=== PATIENT | male | born 2000 | race African-American/Black ===

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

== ENCOUNTER 2019-01-14 01:47 | Emergency (ER) | payer SELFPAY ==
[2019-01-14 02:28] VITALS: PULSE 60; BMI 32.6
[2019-01-14] MEDS ORDERED: DIVALPROEX SODIUM 500 MG TABLET E.C. PO ONE (02:56)
--- NOTE | 2019-01-14 03:53 | PDOC ---
History of Present Illness - General Chief Complaint: Seizure Stated Complaint: SEIZURES Time Seen by Provider: 01/14/19 02:37 History Source: Patient Exam Limitations: No Limitations Past History - Past Medical History Allergies/Adverse Reactions: Allergies Allergy/AdvReac Type Severity Reaction Status Date / Time shellfish derived Allergy Verified 01/14/19 02:28 Home Medications: Ambulatory Orders Divalproex [Depakote -] 500 mg PO TID 02/25/14 Roby Aspartate [Lithate] 80 mg PO DAILY 01/14/19 COPD: No Psychiatric Problems: Yes (anger and axeity) Seizures: Yes - Suicide/Smoking/Psychosocial Hx Smoking Status: No Smoking History: Never smoked Have you smoked in the past 12 months: No Number of Cigarettes Smoked Daily: 1 Information on smoking cessation initiated: No Hx Alcohol Use: No Drug/Substance Use Hx: No Substance Use Type: None *Physical Exam - Vital Signs Last Vital Signs Temp Pulse Resp BP Pulse Ox 97.2 F L 60 19 125/77 100 01/14/19 01:47 01/14/19 01:47 01/14/19 01:47 01/14/19 01:47 01/14/19 01:47 - Physical Exam HEENT: positive: DIONISIO, Other (no head trauma) Neck: positive: Supple. negative: Stridor, Tender lateral, Tender midline Respiratory/Chest: positive: Lungs Clear, Normal Breath Sounds. negative: Respiratory Distress Cardiovascular: positive: Regular Rhythm, Regular Rate, S1, S2. negative: Murmur Gastrointestinal/Abdominal: positive: Normal Bowel Sounds, Soft. negative: Tender, Distended, Guarding, Rebound Musculoskeletal: positive: Other (several old healed cut shea along L forearm) Integumentary: positive: Normal Color Neurologic: positive: Alert, Normal Mood/Affect Moderate Sedation - Procedure Monitoring Vital Signs: Procedure Monitoring Vital Signs Temperature 97.2 F L 01/14/19 01:47 Pulse Rate 60 01/14/19 01:47 Respiratory Rate 19 01/14/19 01:47 Blood Pressure 125/77 01/14/19 01:47 O2 Sat by Pulse Oximetry (%) 100 01/14/19 01:47 ED Treatment Course - LABORATORY CBC & Chemistry Diagram: 01/14/19 03:53 01/14/19 04:06 Medical Decision Making - Medical Decision Making 18 y/o M with hx of seizures (since childhood, on Depakote 500 mg TID), depression, schizophrenia, bipolar presents s/p 1 episode of seizure today. Patient states normally when he gets [place] and chest pain, he knows a seizure is about to occur. The seizure occurred with EMS and no trauma occurred. Per patient's partner, episode lasted only few minutes. Per patient, he had a seizure last week and was seen at [facility], where he stayed for 1 night and then was discharged. Patient mentions not taking his seizure meds for around 1 month. States he never got a refill from [facility] and he does not have a PCP or neurologist. States his father's PCP filled his meds prior to a month ago, but unable to get hold of him as well. Mentions only smoking marijuana; denies other drug use. Denies alcohol use. Patient also mentions he used to take Roby, Seroquel, Clozapine and Xanax but stopped all his meds 2- 3 months ago. He has not seen psychiatrist in long time. Mentions he does not have mother and does not talk much to this father. States 3 weeks ago, he wanted to jump off bridge, but did not do it. Admits to having suicidal thoughts and states he may consider another attempt. Currently denies headache, sob, cp, abd pain, n/v, neck pain, homicidal ideation. Seizure - likely due to med noncompliance and poor f/u Plan: Labs, Depakote 500 mg Psych hx Patient with active suicidal ideation Placed on 1:1 Attempted to reach psychiatry, Dr. Hernandes, but unable to get in touch; voicemail left for callback 01/14/19 03:44 Labs reviewed and unremarkable Urine tox pending to be collected (patient sleeping and has not yet voided) Depakote level low (likely from noncompliance) Patient pending psych eval Will be signed out to incoming [facility] 01/14/19 06:52 *DC/Admit/Observation/Transfer Diagnosis at time of Disposition: Seizure - Discharge Dispostion Condition at time of disposition: Fair - Referrals Referrals: Randi Reed MD [Primary Care Provider] - - Patient Instructions - Post Discharge Activity
[2019-01-14] MEDS ORDERED: DIVALPROEX SODIUM 500 MG TABLET E.C. ONE (03:58)
--- NOTE | 2019-01-14 04:13 | PDOC ---
*Physical Exam - Vital Signs Last Vital Signs Temp Pulse Resp BP Pulse Ox 97.2 F L 60 19 125/77 100 01/14/19 01:47 01/14/19 01:47 01/14/19 01:47 01/14/19 01:47 01/14/19 01:47 ED Treatment Course - LABORATORY CBC & Chemistry Diagram: 01/14/19 03:53 01/14/19 04:06 - Medications Given in the ED: ED Medications Discontinued Medications Generic Name Dose Route Start Last Admin Trade Name Freq PRN Reason Stop Dose Admin Divalproex Sodium 500 mg 01/14/19 02:56 01/14/19 04:05 Depakote - PO 01/14/19 02:57 500 mg ONCE ONE Administration Medical Decision Making - Medical Decision Making 01/14/19 04:13 Patient seen by the advanced practice provider under my direct supervision. Ancillary testing reviewed as necessary. I agree with plan as outlined by the advanced practice provider. *DC/Admit/Observation/Transfer Diagnosis at time of Disposition: Seizure - Discharge Dispostion Condition at time of disposition: Fair - Referrals Referrals: Randi Reed MD [Primary Care Provider] - - Patient Instructions - Post Discharge Activity
[2019-01-14 04:17] LABS: BASO % 0.8 % (0-2.0); EOS % 2.7 % (0-4.5); HEMATOCRIT 37.8 % (35.4-49); HEMOGLOBIN 12.9 GM/dL (11.7-16.9); LYMPH % 38.2 % (8-40); MCH 31.6 pg (25.7-33.7); MCHC 34.1 g/dl (32.0-35.9); MEAN CELL VOLUME 92.6 fl (80-96); MEAN PLT VOLUME 9.3 fl (7.5-11.1); MONO % 5.6 % (3.8-10.2); NEUT % 52.7 % (42.8-82.8); PLATELET COUNT 253 K/MM3 (134-434); RBC 4.08 M/mm3 (4.00-5.60); RDW 14.3 % (11.9-15.9); WHITE BLOOD COUNT 9.8 K/mm3 (4.0-10.0)
[2019-01-14 04:42] LABS: ALBUMIN 3.7 g/dl (3.4-5.0); ALK PHOS 72 U/L (45-117); ANION GAP 8 MMOL/L (8-16); BILIRUBIN,TOTAL 0.2 mg/dL (0.2-1); BLOOD UREA NITROGEN 15 mg/dL (7-18); CALCIUM 9.2 mg/dL (8.5-10.1); CHLORIDE 107 mmol/L (98-107); CO2 26 mmol/L (21-32); CREATININE 0.9 mg/dL (0.55-1.3); GLUCOSE,RANDOM 91 mg/dL (74-106); MAGNESIUM 2.2 mg/dL (1.8-2.4); POTASSIUM 4.2 mmol/L (3.5-5.1); SGOT/AST 20 U/L (15-37); SGPT/ALT 16 U/L (13-61); SODIUM 140 mmol/L (136-145); TOT PROT 6.8 g/dl (6.4-8.2)
--- NOTE | 2019-01-14 07:49 | PDOC ---
*Physical Exam - Vital Signs Last Vital Signs Temp Pulse Resp BP Pulse Ox 97.2 F L 60 19 125/77 100 01/14/19 01:47 01/14/19 01:47 01/14/19 05:25 01/14/19 01:47 01/14/19 05:25 - Physical Exam General Appearance: Yes: Appropriately Dressed. No: Apparent Distress Neck: positive: Supple Respiratory/Chest: negative: Respiratory Distress Integumentary: positive: Dry, Warm ED Treatment Course - LABORATORY CBC & Chemistry Diagram: 01/14/19 03:53 01/14/19 04:06 - ADDITIONAL ORDERS Additional order review: Laboratory Results 01/14/19 01/14/19 01/14/19 04:06 03:53 03:53 WBC RBC Hgb Hct MCV MCH MCHC RDW Plt Count MPV Absolute Neuts (auto) Neutrophils % Lymphocytes % Monocytes % Eosinophils % Basophils % Nucleated RBC % Sodium 140 Potassium 4.2 Chloride 107 Carbon Dioxide 26 Anion Gap 8 BUN 15 Creatinine 0.9 Creat Clearance w eGFR > 60 Random Glucose 91 Calcium 9.2 Magnesium 2.2 Total Bilirubin 0.2 AST 20 ALT 16 Alkaline Phosphatase 72 Total Protein 6.8 Albumin 3.7 Salicylates 1.8 L Acetaminophen < 2.0 L Valproic Acid < 3.0 L Alcohol, Quantitative < 3.0 01/14/19 03:53 WBC 9.8 RBC 4.08 Hgb 12.9 Hct 37.8 MCV 92.6 MCH 31.6 MCHC 34.1 RDW 14.3 Plt Count 253 MPV 9.3 Absolute Neuts (auto) 5.2 Neutrophils % 52.7 Lymphocytes % 38.2 Monocytes % 5.6 Eosinophils % 2.7 Basophils % 0.8 Nucleated RBC % 0 Sodium Potassium Chloride Carbon Dioxide Anion Gap BUN Creatinine Creat Clearance w eGFR Random Glucose Calcium Magnesium Total Bilirubin AST ALT Alkaline Phosphatase Total Protein Albumin Salicylates Acetaminophen Valproic Acid Alcohol, Quantitative 01/14/19 03:53 RBC 4.08 MCV 92.6 MCHC 34.1 RDW 14.3 MPV 9.3 Neutrophils % 52.7 Lymphocytes % 38.2 Monocytes % 5.6 Eosinophils % 2.7 Basophils % 0.8 - Medications Given in the ED: ED Medications Discontinued Medications Generic Name Dose Route Start Last Admin Trade Name Freq PRN Reason Stop Dose Admin Divalproex Sodium 500 mg 01/14/19 02:56 01/14/19 04:05 Depakote - PO 01/14/19 02:57 500 mg ONCE ONE Administration Medical Decision Making - Medical Decision Making 01/14/19 07:39 Received sign out at 7am 18 yo male, depression, schizophrenia, bipolar, seizure, non-compliant w/ meds, brought in by EMS after patient called reporting that he felt that a seizure was coming on. Seizure witnessed by EMS w/ no trauma noted per records. Of note , patient was seen at [facility] last week for seizure. Stopped taking his seizure meds ~1 month ago and states he never received refill from [facility]. Currently lost to f/u w/ neuro. Patient also on lithium, seroquel, clozapine and Xanax but stopped taking all his meds 2-3 months ago and has not seen a psychiatrist in a long time. Per patient has had previous suicidal ideation and states in the past, he had thoughts of jumping off a bridge. Per prior team, patient has multiple healed linear abrasions to UEs, c/ w prior self injury. Per prior team, pt with active suicidal ideation and currently a/w psych eval. Awaiting to hear from Dr Hernandes who was already paged. Pt currently on 1:1. Of note, labs mostly unremarkable, depakote lvl low. Utox pending 01/14/19 07:49 On reassessment now, unable to interview patient at this time as patient currently sleeping 01/14/19 10:20 Pt more awake now and able to give hx. Confirms that he has not taken any of his meds in months and lost to f/u. Does report SI at this time but refusing admission/transfer at this time. Denies HI or hallucinations at this time. [place] back from Dr Hernandes who states he will come evaluate pt in the ED 01/14/19 11:06 *DC/Admit/Observation/Transfer Diagnosis at time of Disposition: Seizure - Discharge Dispostion Disposition: HOME Condition at time of disposition: Stable - Referrals Referrals: Randi Reed MD [Primary Care Provider] - - Patient Instructions Additional Instructions: You were cleared by psychiatry to be discharged It is very important that you resume psych medications Please follow up in the psychiatry clinic at [facility] in [place]. Please call for an appointment at [phone] You also need to resume you seizure meds Please follow up at the neurology clinic at [facility] You can call for an appointment at: [facility] [address], [place] [id number] Sunday 9:00 AM - 5:00 PM Sunday 9:00 AM - 5:00 PM Sunday 9:00 AM - 5:00 PM 9:00 AM - 5:00 PM Sunday 9:00 AM - 5:00 PM Sunday Closed Sunday Closed Please return to the ED for worsening of any of your symptoms - Post Discharge Activity
[2019-01-14 08:37] VITALS: BP 99/55; TEMP 98.5
--- NOTE | 2019-01-14 11:06 | CON.PSY ---
Psychiatry Consult Chief Complaint: 18 year old male, came to Er for Seizures and apparantly told staff that he was suicidal but no concrte plans at this time. patient hasd history of selfv damaging behaviour. had been attending [facility] . Symptoms: reports: Irritability - Previous Psychiatric Treatment Outpatient: Less than 6 mos ago Inpatient: Within the last 12 months - Previous Substance Abuse Treatment Outpatient: None Inpatient: None - Reason for Previous Treatment Reason for Previous Treatment: Biploar Illness - Allergies Allergies: Allergies Allergy/AdvReac Type Severity Reaction Status Date / Time shellfish derived Allergy Verified 01/14/19 02:28 - Current Living Status Usual Living Arrangement: With Significant Other - Current Mental Status Evaluation Appearance: Well Groomed Attitude: Cooperative - Affect Affect: Constrictive Appropriateness: Appropriate to Content - Mood Mood: Euthymic - Speech/Language Expressive: Coherent - Psychomotor Activity Psychomotor Activity: Normal - Thought Process Thought Process: Intact - Thought Content Hallucinations: Absent Delusions: Absent - Self Perception Self Perception: No Impairment - Cognition Attention: Alert Orientation: Time Memory, Short Term: 2/3 Memory, Remote with Promptin/3 - Concentration Serial Sevens Intact: No Simple Calculations Intact: Yes - Abstraction Proverb Interpretation: Intact Judgement: Minimally Impaired - Insight Insight: Intact - Impulse Control Impulse Control: Minimally Impaired - Suicidal Ideation Suicidal Ideation: No - Homicidal Ideation Homicidal Ideation: No Assessment/Plan 1) Patient is not acutly suicidal at this time. 2) Psych [id number] up at [facility]. ) discharge home when medically clear. 3)
--- NOTE | 2019-01-14 13:47 | EKG ---
Test Reason : Blood Pressure : / mmHG Vent. Rate : 048 BPM Atrial Rate : 048 BPM P-R Int : 168 ms QRS Dur : 098 ms QT Int : 432 ms P-R-T Axes : 058 072 068 degrees QTc Int : 385 ms SINUS BRADYCARDIA WITH SINUS ARRHYTHMIA OTHERWISE NORMAL ECG NO PREVIOUS ECGS AVAILABLE Confirmed by MD Duke, Lazaro ([id number]) on 01/14/2019 1:46:43 PM Referred By: Confirmed By:Lazaro Wall MD
== END 2019-01-14 11:15 | disposition home or self-care (01) ==
LOC: JER 01:47
DX: G40.909 Epilepsy, unspecified, not intractable, without status epilepticus (principal); R45.851 Suicidal ideations; F31.9 Bipolar disorder, unspecified; F20.9 Schizophrenia, unspecified; R45.4 Irritability and anger
CPT/HCPCS: 36415; 80053; 80164; 80307; 83735; 85025; 93005; 93010; 99285-25

== ENCOUNTER 2019-01-22 14:45 | Emergency (ER) | payer SELFPAY ==
[2019-01-22 15:10] VITALS: BP 112/56; PULSE 75; TEMP 98; BMI 32.6
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
== END 2019-01-22 16:23 | disposition home or self-care (01) ==
LOC: JERFT 14:45
PROC: 2W3RXYZ Immobilization of Left Lower Leg using Other Device (ICD-10-PCS; principal; 2019-01-22)
DX: S83.412D Sprain of medial collateral ligament of left knee, subsequent encounter (principal); V03.00XD Pedestrian on foot injured in collision with car, pick-up truck or van in nontraffic accident, subsequent encounter
CPT/HCPCS: 73562-TC-LT-FY; 99281-25

== ENCOUNTER 2019-03-21 01:42 | Observation (INO) | payer OTHER ==
--- NOTE | 2019-03-21 02:05 | PDOC ---
History of Present Illness - General Stated Complaint: VOMITING Time Seen by Provider: 03/21/19 02:01 History Source: Patient Exam Limitations: No Limitations - History of Present Illness Initial Comments: 03/21/19 02:23 18 year old male with PMH seizure disorder presented to ED for toxic ingestion of multiple substances at 1130 pm 03/20/19. Pt admitted to smoking 1/8 of marijuana, taking 2 "mollys" and taking four 500 mg depakote. He stated he was going to take more Depakote in an effort to kill himself, but his cousin persuaded him otherwise. Pt stated he has a history of cutting, and was going to cut his arms in an effort to take the pain away. Pt admitted to vomiting four times, denied blood. Pt denied ETOH use, cocaine use, benzo use, heroine use, IV drug use. Allergies: NKDA Past History - Past Medical History Allergies/Adverse Reactions: Allergies Allergy/AdvReac Type Severity Reaction Status Date / Time shellfish derived Allergy Verified 03/21/19 03:53 Home Medications: Ambulatory Orders Divalproex [Depakote -] 500 mg PO TID 02/25/14 [place] Aspartate [Lithate] 80 mg PO DAILY 01/14/19 COPD: No Psychiatric Problems: Yes (anger and axeity) Seizures: Yes - Suicide/Smoking/Psychosocial Hx Smoking Status: No Smoking History: Current every day smoker Have you smoked in the past 12 months: No Number of Cigarettes Smoked Daily: 10 Hx Alcohol Use: Yes Drug/Substance Use Hx: Yes Substance Use Type: None Review of Systems - Review of Systems Able to Perform ROS?: Yes Comments:: 03/21/19 02:27 General: denied fever, chills, generalized weakness. HEENT: denied sore throat, rhinorrhea, ear pain. Heart: denied chest pain, palpitations, syncope, diaphoresis. Respiratory: denied shortness of breath, cough, sputum production, hemoptysis. Abdomen: admitted to nausea, vomiting, abdominal pain. denied diarrhea, constipation, blood in stool. : denied dysuria, increased urinary frequency, hematuria, urinary incontinence , flank pain. Back: denied back pain. Musculoskeletal: denied joint pain, muscle pain, joint swelling. Neurological: denied headache, dizziness, numbness, tingling, weakness. Skin: denied rash, laceration, abrasion. *Physical Exam - Physical Exam Comments: 03/21/19 02:28 Constitutional: Well-nourished, Well-developed, appearing stated age. appears intoxicated. dishelveled. malodorous. HEENT: head is normocephalic, atraumatic. EOMI. PERRLA. Neck: supple. Full ROM. Heart: regular rhythm. no murmurs, rubs or gallops. Lungs: clear to auscultation bilaterally. no crackles, rhonchi or wheezing. no stridor. Abdomen: soft, nontender. normal bowel sounds. no rebound, guarding, masses. Extremities: peripheral pulses intact. no lower extremity edema. Neurological: CN 2-12 grossly intact. moves all four extremities. Psych: awake, alert, oriented x3. follows commands. answers questions appropriately. no depressed mental status. Skin: diffuse too numerous to count healed linear horizontal scars to flexor surface of bilateral arms. ED Treatment Course - LABORATORY CBC & Chemistry Diagram: 03/21/19 02:14 03/21/19 02:14 Medical Decision Making - Medical Decision Making 03/21/19 02:28 18 year old male with PMH seizure disorder presented to ED for polysubstance ingestion with suicidal ideation. Labs ordered: CBC, CMP, acetaminophen, salicyclate, depakote level, ammonia Imaging ordered: none Medications ordered: none Pt has been placed on 1:1. Psych consult placed. EKG performed at 0539: rate 54, regular rhythm, normal axis, normal intervals, QTc 396, no acute ST changes, artifact noted. 03/21/19 03:32 CBC WBC 9.3 K/mm3 (4.0-10.0) 03/21/19 02:14 RBC 4.80 M/mm3 (4.00-5.60) 03/21/19 02:14 Hgb 13.7 GM/dL (11.7-16.9) 03/21/19 02:14 Hct 42.1 % (35.4-49) 03/21/19 02:14 MCV 87.6 fl (80-96) 03/21/19 02:14 MCH 28.6 pg (25.7-33.7) 03/21/19 02:14 MCHC 32.6 g/dl (32.0-35.9) 03/21/19 02:14 RDW 14.8 % (11.9-15.9) 03/21/19 02:14 Plt Count 258 K/MM3 (134-434) 03/21/19 02:14 MPV 9.0 fl (7.5-11.1) 03/21/19 02:14 Absolute Neuts (auto) 5.5 K/mm3 (1.5-8.0) 03/21/19 02:14 Neutrophils % 59.0 % (42.8-82.8) 03/21/19 02:14 Lymphocytes % 33.4 % (8-40) 03/21/19 02:14 Monocytes % 5.3 % (3.8-10.2) 03/21/19 02:14 Eosinophils % 1.7 % (0-4.5) 03/21/19 02:14 Basophils % 0.6 % (0-2.0) 03/21/19 02:14 Nucleated RBC % 0 % (0-0) 03/21/19 02:14 No leukocytosis. No anemia. No thrombocytopenia. 03/21/19 03:38 Pt reassessed, sleeping comfortably, easily arousable, alert and orientedx3. Salicyclate, acetaminophen levels negative. Depakote level negative. -Will repeat. 03/21/19 04:09 CMP Sodium 140 mmol/L (136-145) 03/21/19 02:14 Potassium 4.1 mmol/L (3.5-5.1) 03/21/19 02:14 Chloride 110 mmol/L (98-107) H 03/21/19 02:14 Carbon Dioxide 24 mmol/L (21-32) 03/21/19 02:14 Anion Gap 7 MMOL/L (8-16) L 03/21/19 02:14 BUN 13 mg/dL (7-18) 03/21/19 02:14 Creatinine 0.8 mg/dL (0.55-1.3) 03/21/19 02:14 Est GFR (CKD-EPI)AfAm 149.04 03/21/19 02:14 Est GFR (CKD-EPI)NonAf 128.60 03/21/19 02:14 Random Glucose 91 mg/dL (74-106) 03/21/19 02:14 Calcium 9.3 mg/dL (8.5-10.1) 03/21/19 02:14 Total Bilirubin 0.3 mg/dL (0.2-1) 03/21/19 02:14 AST 16 U/L (15-37) 03/21/19 02:14 ALT 18 U/L (13-61) 03/21/19 02:14 Alkaline Phosphatase 70 U/L (45-117) 03/21/19 02:14 Ammonia 54.60 umol/L (11-32) H 03/21/19 02:14 Total Protein 6.8 g/dl (6.4-8.2) 03/21/19 02:14 Albumin 3.8 g/dl (3.4-5.0) 03/21/19 02:14 No electrolyte abnormalities. No JOSELUIS. No transaminitis. Mildly elevated ammonia. 03/21/19 04:45 Pt reevaluated, sleeping comfortably, arousable to touch, somnolent, but alert once awake. 03/21/19 05:23 Poison control consulted - they recommended serial depakote levels every 4-6 hours, for two more measurements. Pt will require observation for serial depakote levels. Can be ED obs. Microblog sent. 03/21/19 06:29 Dr. Hernandes paged. Message left on voicemail. 03/21/19 06:46 Second depakote 10.5 -Will need repeat at [address] Mancuso about the patient. *DC/Admit/Observation/Transfer Diagnosis at time of Disposition: Suicidal ideation, Polysubstance abuse, Valproic acid toxicity - Discharge Dispostion Condition at time of disposition: Stable Decision to Admit order: Yes - Referrals - Patient Instructions - Post Discharge Activity
--- NOTE | 2019-03-21 02:31 | PDOC ---
Attending Attestation - Resident Resident Name: Carlie Nick - ED Attending Attestation I have performed the following: I have examined & evaluated the patient, The case was reviewed & discussed with the resident, I agree w/resident's findings & plan, Exceptions are as noted - HPI HPI: 03/21/19 05:26 18M pmh sz do here with polysubstance ingestion and suicide attempt. Pt smoked marijuana, took 2 doses of casimiro and 500mg Depakote x4 pills. His cousin witnessed the ingestion around 12am tonight and prevented the patient from taking anymore Depakote when he stated that he was going to take more to try to kill himself. Afterwards pt vomited 4x, nbnb. No other complaints. - Physicial Exam PE: 03/21/19 05:28 Appears intoxicated, NAD, Oriented x3, sleepy but easily roused NCAT PERRL, EOMI Neck supple RRR LCTAB ABd soft, nt, nd Stigmata of cutting on bilateral upper extremities, no acute lacerations - Medical Decision Making 03/21/19 05:29 Toxic ingestion, polysubstance, marijuana, casimiro, 2gm of VPA In consultation with [facility] poison [spoke with Kusum Patton], will trend VPA levels every 4 to 6 hours until a peak is noted followed by 2 decreasing values F/u labs 1:1 Psych consult when medically clear
[2019-03-21 02:48] VITALS: BMI 64.3
[2019-03-21 03:08] LABS: BASO % 0.6 % (0-2.0); EOS % 1.7 % (0-4.5); HEMATOCRIT 42.1 % (35.4-49); HEMOGLOBIN 13.7 GM/dL (11.7-16.9); LYMPH % 33.4 % (8-40); MCH 28.6 pg (25.7-33.7); MCHC 32.6 g/dl (32.0-35.9); MEAN CELL VOLUME 87.6 fl (80-96); MONO % 5.3 % (3.8-10.2); PLATELET COUNT 258 K/MM3 (134-434); RDW 14.8 % (11.9-15.9); WHITE BLOOD COUNT 9.3 K/mm3 (4.0-10.0)
[2019-03-21 04:03] LABS: ALBUMIN 3.8 g/dl (3.4-5.0); BILIRUBIN,TOTAL 0.3 mg/dL (0.2-1); CALCIUM 9.3 mg/dL (8.5-10.1); CREATININE 0.8 mg/dL (0.55-1.3); POTASSIUM 4.1 mmol/L (3.5-5.1); TOT PROT 6.8 g/dl (6.4-8.2)
[2019-03-21 05:16] VITALS: TEMP 98
--- NOTE | 2019-03-21 10:40 | PDOC ---
*Physical Exam - Vital Signs Last Vital Signs Temp Pulse Resp BP Pulse Ox 98.0 F 60 20 107/60 97 03/21/19 05:13 03/21/19 05:13 03/21/19 04:24 03/21/19 05:13 03/21/19 05:13 ED Treatment Course - LABORATORY CBC & Chemistry Diagram: 03/21/19 02:14 03/21/19 02:14 - ADDITIONAL ORDERS Additional order review: Laboratory Results 03/21/19 03/21/19 03/21/19 02:14 02:14 02:14 Sodium Potassium Chloride Carbon Dioxide Anion Gap BUN Creatinine Est GFR (CKD-EPI)AfAm Est GFR (CKD-EPI)NonAf Random Glucose Calcium Total Bilirubin AST ALT Alkaline Phosphatase Ammonia 54.60 H Total Protein Albumin Salicylates < 1.7 L Acetaminophen < 2.0 L Valproic Acid 10.1 L 03/21/19 02:14 Sodium 140 Potassium 4.1 Chloride 110 H Carbon Dioxide 24 Anion Gap 7 L BUN 13 Creatinine 0.8 Est GFR (CKD-EPI)AfAm 149.04 Est GFR (CKD-EPI)NonAf 128.60 Random Glucose 91 Calcium 9.3 Total Bilirubin 0.3 AST 16 ALT 18 Alkaline Phosphatase 70 Ammonia Total Protein 6.8 Albumin 3.8 Salicylates Acetaminophen Valproic Acid 03/21/19 02:14 RBC 4.80 MCV 87.6 MCHC 32.6 RDW 14.8 MPV 9.0 Neutrophils % 59.0 Lymphocytes % 33.4 Monocytes % 5.3 Eosinophils % 1.7 Basophils % 0.6 Medical Decision Making - Medical Decision Making 03/21/19 10:39 Reevaluation 10:30 AM. Patient sleeping comfortably arousable to gentle stimulation no complaints at this time awaiting psychiatric evaluation second Depakote level grossly unchanged 03/21/19 14:30 Reevaluation 2:30 PM Patient awake alert eating. Laboratory analysis trending down regarding Depakote level Patient currently denying any suicidal ideation or plan Medically cleared at this point. *DC/Admit/Observation/Transfer Diagnosis at time of Disposition: Suicidal ideation, Polysubstance abuse, Valproic acid toxicity - Discharge Dispostion Condition at time of disposition: Stable - Referrals - Patient Instructions - Post Discharge Activity
--- NOTE | 2019-03-21 10:46 | HP ---
CHIEF COMPLAINT: suicide attempt PCP: none HISTORY OF PRESENT ILLNESS: 18 y/o M with PMH seizure disorder (since childhood), depression, schizophrenia , bipolar, past suicide attempts, cutting shea, who presented to the ED for toxic ingestion of multiple substances last night. All hx provided by EMR, as pt is unable to discuss his current condition- "I am too sleepy to even keep my eyes open." As per chart, on admission, pt admitted to smoking 1/8 of marijuana , taking 2 "casimiro's" and taking four pills of 500 mg depakote. He stated he was going to take extra Depakote to harm himself, however his cousin persuaded him not to. Pt has a history of cutting, and was going to cut his upper extremities in an effort to take the pain away. During this time, pt also endorsed four episodes of NBNB emesis. Pt denied ETOH use, cocaine use, benzo use, heroine use , IV drug use. Currently refuses to discuss ROS. Pt has been attending [facility] psych clinic. Pharmacy called - was recently d/c on : klonazepam 1mg BID VESNA, benztropine 0.5mg BID, lithium 300mg 3 caps qHS , zyprexa 20mg qHS, oxcarbazepine 300mg BID. Last yr his depakote 500mg qHS was filled. ER course was notable for: (1) first 2 depakote levels subtherapeutic (2) poison control (3) Recent Travel: denies PAST MEDICAL HISTORY: as above PAST SURGICAL HISTORY: L elbow surgery Social History: Smoking: endorsed; would not describe further Alcohol: as above Drugs: as above Family History: denies Allergies shellfish derived Allergy (Verified 03/21/19 03:53) HOME MEDICATIONS: Home Medications Medication Instructions Recorded Benztropine Mesylate 0.5 mg PO BID 03/21/19 Clonazepam [Klonopin] 1 mg PO BID 03/21/19 [place] Carbonate [Eskalith -] 900 mg PO HS 03/21/19 Olanzapine [Zyprexa] 20 mg PO HS 03/21/19 Oxcarbazepine 300 mg PO BID 03/21/19 pharmacy called; meds listed above. unable to verbally confirm with pt as he is too lethargic REVIEW OF SYSTEMS CONSTITUTIONAL: +lethargic Absent: fever, chills, diaphoresis, generalized weakness, malaise, loss of appetite, weight change HEENT: Absent: rhinorrhea, nasal congestion, throat pain, throat swelling, difficulty swallowing, mouth swelling, ear pain, eye pain, visual changes CARDIOVASCULAR: Absent: chest pain, syncope, palpitations, irregular heart rate, lightheadedness , peripheral edema RESPIRATORY: Absent: cough, shortness of breath, dyspnea with exertion, orthopnea, wheezing, stridor, hemoptysis GASTROINTESTINAL: Absent: abdominal pain, abdominal distension, nausea, vomiting, diarrhea, constipation, melena, hematochezia GENITOURINARY: Absent: dysuria, frequency, urgency, hesitancy, hematuria, flank pain, genital pain MUSCULOSKELETAL: Absent: myalgia, arthralgia, joint swelling, back pain, neck pain SKIN: Absent: rash, itching, pallor HEMATOLOGIC/IMMUNOLOGIC: Absent: easy bleeding, easy bruising, lymphadenopathy, frequent infections ENDOCRINE: Absent: unexplained weight gain, unexplained weight loss, heat intolerance, cold intolerance NEUROLOGIC: Absent: headache, focal weakness or paresthesias, dizziness, unsteady gait, seizure, mental status changes, bladder or bowel incontinence PSYCHIATRIC: Absent: anxiety, depression, suicidal or homicidal ideation, hallucinations. PHYSICAL EXAMINATION Vital Signs - 24 hr 03/21/19 03/21/19 03/21/19 02:00 02:48 04:24 Temperature 98.3 F 98.3 F 98.5 F Pulse Rate 67 Pulse Rate [ 70 70 Radial] Respiratory 17 20 20 Rate Blood Pressure 124/80 Blood Pressure 124/80 107/80 [Left Arm] O2 Sat by Pulse 97 99 100 Oximetry (%) 03/21/19 05:13 Temperature 98.0 F Pulse Rate Pulse Rate [ 60 Radial] Respiratory Rate Blood Pressure Blood Pressure 107/60 [Left Arm] O2 Sat by Pulse 97 Oximetry (%) GENERAL: Lying in bed, lethargic. on 1:1 . does not appear to be in acute distress HEAD: Normal with no signs of trauma. EYES: Pupils equal, round and reactive to light, extraocular movements intact, sclera anicteric, conjunctiva clear. EARS, NOSE, THROAT: Ears normal, nares patent, oropharynx clear without exudates. Moist mucous membranes. NECK: Normal range of motion, supple LUNGS: Breath sounds equal, clear to auscultation bilaterally. No wheezes, and no crackles. No accessory muscle use. HEART: Regular rate and rhythm, normal S1 and S2 without murmur, rub or gallop. ABDOMEN: Soft, obese, nontender, not distended, normoactive bowel sounds, no guarding, no rebound, no masses. LOWER EXTREMITIES: 2+ pt pulses, warm, well-perfused. No calf tenderness. No peripheral edema. NEUROLOGICAL: Cranial nerves II-XII intact. PSYCHIATRIC: Cooperative. Good eye contact. SKIN: Warm, dry, normal turgor Laboratory Results 03/21/19 03/21/19 03/21/19 02:14 02:14 02:14 WBC 9.3 RBC 4.80 Hgb 13.7 Hct 42.1 MCV 87.6 MCH 28.6 MCHC 32.6 RDW 14.8 Plt Count 258 MPV 9.0 Absolute Neuts (auto) 5.5 Neutrophils % 59.0 Lymphocytes % 33.4 Monocytes % 5.3 Eosinophils % 1.7 Basophils % 0.6 Nucleated RBC % 0 Sodium 140 Potassium 4.1 Chloride 110 H Carbon Dioxide 24 Anion Gap 7 L BUN 13 Creatinine 0.8 Est GFR (CKD-EPI)AfAm 149.04 Est GFR (CKD-EPI)NonAf 128.60 Random Glucose 91 Calcium 9.3 Total Bilirubin 0.3 AST 16 ALT 18 Alkaline Phosphatase 70 Ammonia Total Protein 6.8 Albumin 3.8 Salicylates Acetaminophen Valproic Acid 10.1 L 03/21/19 03/21/19 03/21/19 02:14 02:14 05:51 Salicylates < 1.7 L Acetaminophen < 2.0 L Valproic Acid 10.1 L 10.5 L 03/21/19 10:20 Salicylates Acetaminophen Valproic Acid Pending EKG: normal sinus, rate 54, qtc 346ms. no acute st -t wave changes. from EKG 5: 30AM ASSESSMENT/PLAN: 18 y/o M with PMH seizure disorder (since childhood), depression, schizophrenia , bipolar, past suicide attempts, cutting shea, who presented to the ED for toxic ingestion of multiple substances last night. #Suicide attempt -s/p toxic ingestions including MDMA, depakote -first 2 depakote levels subtherapeutic -d/w Gail from poison control. requesting ABG, alcohol, lithium q2hr x2, full tox screen, carbamezepine levels and call back when they result -was on 1:1;cleared by psych, no psych meds at this time -psych: Dr. Hatch -NPO for now as very lethargic. can adv diet when more awake -hemodynamic monitoring #F/E/N No IVF req at this time continue to follow lytes NPO until less lethargic. #PPX DVT: SCD's #Dispo observation Visit type - Emergency Visit Emergency Visit: Yes ED Registration Date: 03/21/19 Care time: The patient presented to the Emergency Department on the above date and was hospitalized for further evaluation of their emergent condition. - New Patient This patient is new to me today: Yes Date on this admission: 03/21/19 - Critical Care Critical Care patient: No
--- NOTE | 2019-03-21 11:03 | CON.PSY ---
Psychiatry Consult Chief Complaint: 18 adryan old male with no history of Psych illnesws brought to ER after ingesting 4 Depakote tabs , marijuana and Mollies. Patient said he was upset over the of his grand motherr 4 days ago. Patient denies that he was trying to kill himself. Symptoms: reports: Depressed Mood - Previous Psychiatric Treatment Outpatient: None Inpatient: None - Previous Substance Abuse Treatment Outpatient: None Inpatient: None - Allergies Allergies: Allergies Allergy/AdvReac Type Severity Reaction Status Date / Time shellfish derived Allergy Verified 03/21/19 03:53 - Current Living Status Usual Living Arrangement: Alone - Current Mental Status Evaluation Appearance: Well Groomed Attitude: Cooperative - Affect Affect: Constrictive Appropriateness: Appropriate to Content - Mood Mood: Euthymic - Speech/Language Expressive: Coherent - Psychomotor Activity Psychomotor Activity: Normal - Thought Process Thought Process: Intact - Thought Content Hallucinations: Absent Delusions: Absent - Self Perception Self Perception: No Impairment - Cognition Attention: Alert Orientation: Time Memory, Immediate Recall: Intact Memory, Short Term: 3/3 Memory, Remote with Promptin/3 - Concentration Serial Sevens Intact: Yes Simple Calculations Intact: Yes - Abstraction Proverb Interpretation: Intact Judgement: Minimally Impaired - Insight Insight: Intact - Impulse Control Impulse Control: Minimally Impaired - Suicidal Ideation Suicidal Ideation: No - Homicidal Ideation Homicidal Ideation: No Assessment/Plan 1) Patient is not SUicidal at this timer. 2) will follow up with Deanna Strong at [facility]. #) No Psych meds needed. 4) Discharge when medically stable.
--- NOTE | 2019-03-21 15:17 | DS ---
Physical Exam: SUBJECTIVE: Patient seen and examined at bedside. Feeling better and less lethargic. Able to tolerate PO. OBJECTIVE: Vital Signs Period Temp Pulse Resp BP Sys/Ponce Pulse Ox Last 24 Hr 98.0 F-98.5 F 58-70 14-20 105-124/59-80 97-100 PHYSICAL EXAM GENERAL: Lying in bed,awake . in NAD HEAD: Normal with no signs of trauma. EYES: Pupils equal, round and reactive to light, extraocular movements intact, sclera anicteric, conjunctiva clear. EARS, NOSE, THROAT: Ears normal, nares patent, oropharynx clear without exudates. Moist mucous membranes. NECK: Normal range of motion, supple LUNGS: Breath sounds equal, clear to auscultation bilaterally. No wheezes, and no crackles. No accessory muscle use. HEART: Regular rate and rhythm, normal S1 and S2 without murmur, rub or gallop. ABDOMEN: Soft, obese, nontender, not distended, normoactive bowel sounds, no guarding, no rebound, no masses. LOWER EXTREMITIES: 2+ pt pulses, warm, well-perfused. No calf tenderness. No peripheral edema. NEUROLOGICAL: Cranial nerves II-XII intact. PSYCHIATRIC: Cooperative. Good eye contact. SKIN: Warm, dry, normal turgor LABS Laboratory Results 03/21/19 03/21/19 03/21/19 02:14 02:14 02:14 WBC 9.3 Hgb 13.7 Hct 42.1 Plt Count 258 Sodium 140 Potassium 4.1 Chloride 110 H Anion Gap 7 L BUN 13 Creatinine 0.8 Salicylates Acetaminophen Valproic Acid 10.1 L Carbamazepine Alcohol, Quantitative 03/21/19 03/21/19 03/21/19 02:14 05:51 10:20 WBC Hgb Hct Plt Count Sodium Potassium Chloride Anion Gap BUN Creatinine Salicylates < 1.7 L Acetaminophen < 2.0 L Valproic Acid 10.5 L 9.6 L Carbamazepine Alcohol, Quantitative 03/21/19 03/21/19 11:45 11:45 WBC Hgb Hct Plt Count Sodium Potassium Chloride Anion Gap BUN Creatinine Salicylates Acetaminophen Valproic Acid Carbamazepine < 0.5 L Alcohol, Quantitative < 3.0 EKG: normal sinus, rate 54, qtc 346ms. no acute st -t wave changes. from EKG 5: 30AM HOSPITAL COURSE: Date of Admission:03/21/19 Date of Discharge: 03/21/19 Admit diagnosis: Suicide attempt 18 y/o M with PMH seizure disorder (since childhood), depression, schizophrenia , bipolar, past suicide attempts, cutting shea, who presented to the ED for toxic ingestion of multiple substances last night. All hx provided by EMR, as pt is unable to discuss his current condition- "I am too sleepy to even keep my eyes open." As per chart, on admission, pt admitted to smoking 1/ of marijuana , taking 2 "casimiro's" and taking four pills of 500 mg depakote. He stated he was going to take extra Depakote to harm himself, however his cousin persuaded him not to. Pt has a history of cutting, and was going to cut his upper extremities in an effort to take the pain away. During this time, pt also endorsed four episodes of NBNB emesis. Pt denied ETOH use, cocaine use, benzo use, heroine use , IV drug use. Currently refuses to discuss ROS. Pt has been attending [facility] psych clinic. Pharmacy called - was recently d/c on : klonazepam 1mg BID VESNA, benztropine 0.5mg BID, lithium 300mg 3 caps qHS , zyprexa 20mg qHS, oxcarbazepine 300mg BID. Last yr his depakote 500mg qHS was filled. Pt was observed. Three depakote levels were subtherapeutic, alcohol level was negative, carbamezepine negative. Pt was monitored on telemetry while in the ER. He was seen by psychiatry as well . Initially pt was on 1:1 but was cleared by psych, Dr. Hatch and was not recommended to continue on any psych meds on d/c. Pt is to follow at [facility]. He is deemed safe for d/c by psychiatry. Minutes to complete discharge: 45 Discharge Summary Reason For Visit: SUICIDAL IDEATION,POLYSUBSTANCE ABUSE, VALPROIC Condition: Improved - Instructions Diet, Activity, Other Instructions: You were in the hospital because you had ingested multiple drugs. You have been monitored in the hospital and you have been cleared by psychiatry to go home. Medications As per the psychiatrist who saw you in the hospital, you do not need to continue any medications at this time. Follow up However please follow up immediately at the [facility] center at [facility]. [address], [place] Phone number: [phone]. Please also follow up with your primary care doctor this week to discuss your hospital visit. Further instructions If you develop shortness of breath, chest pain or feel as if you will harm yourself, please go to the ER immediately. Disposition: HOME This patient is new to me today: Yes Date on this admission: 03/21/19 Emergency Visit: Yes ED Registration Date: 03/21/19 Care time: The patient presented to the Emergency Department on the above date and was hospitalized for further evaluation of their emergent condition. Critical Care patient: No - Discharge Referral Referred to [facility] No
[2019-03-21 15:22] VITALS: BP 115/68; PULSE 59
--- NOTE | 2019-03-21 15:51 | PN ---
Teaching Attending Note Name of Resident: Felisha Bass ATTENDING PHYSICIAN STATEMENT I saw and evaluated the patient. I reviewed the resident's note and discussed the case with the resident. I agree with the resident's findings and plan as documented. SUBJECTIVE: OBJECTIVE: Vital Signs Period Temp Pulse Resp BP Sys/Ponce Pulse Ox Last 24 Hr 98.0 F-98.5 F 58-70 14-20 105-124/59-80 97-100 Laboratory Tests 03/21/19 03/21/19 03/21/19 02:14 02:14 02:14 WBC 9.3 RBC 4.80 Hgb 13.7 Hct 42.1 MCV 87.6 MCH 28.6 MCHC 32.6 RDW 14.8 Plt Count 258 MPV 9.0 Absolute Neuts (auto) 5.5 Neutrophils % 59.0 Lymphocytes % 33.4 Monocytes % 5.3 Eosinophils % 1.7 Basophils % 0.6 Nucleated RBC % 0 Sodium 140 Potassium 4.1 Chloride 110 H Carbon Dioxide 24 Anion Gap 7 L BUN 13 Creatinine 0.8 Est GFR (CKD-EPI)AfAm 149.04 Est GFR (CKD-EPI)NonAf 128.60 Random Glucose 91 Calcium 9.3 Total Bilirubin 0.3 AST 16 ALT 18 Alkaline Phosphatase 70 Ammonia Total Protein 6.8 Albumin 3.8 Salicylates Acetaminophen Valproic Acid 10.1 L Carbamazepine Alcohol, Quantitative 03/21/19 03/21/19 03/21/19 02:14 02:14 05:51 WBC RBC Hgb Hct MCV MCH MCHC RDW Plt Count MPV Absolute Neuts (auto) Neutrophils % Lymphocytes % Monocytes % Eosinophils % Basophils % Nucleated RBC % Sodium Potassium Chloride Carbon Dioxide Anion Gap BUN Creatinine Est GFR (CKD-EPI)AfAm Est GFR (CKD-EPI)NonAf Random Glucose Calcium Total Bilirubin AST ALT Alkaline Phosphatase Ammonia 54.60 H Total Protein Albumin Salicylates < 1.7 L Acetaminophen < 2.0 L Valproic Acid 10.5 L Carbamazepine Alcohol, Quantitative 03/21/19 03/21/19 03/21/19 10:20 11:45 11:45 WBC RBC Hgb Hct MCV MCH MCHC RDW Plt Count MPV Absolute Neuts (auto) Neutrophils % Lymphocytes % Monocytes % Eosinophils % Basophils % Nucleated RBC % Sodium Potassium Chloride Carbon Dioxide Anion Gap BUN Creatinine Est GFR (CKD-EPI)AfAm Est GFR (CKD-EPI)NonAf Random Glucose Calcium Total Bilirubin AST ALT Alkaline Phosphatase Ammonia Total Protein Albumin Salicylates Acetaminophen Valproic Acid 9.6 L Carbamazepine < 0.5 L Alcohol, Quantitative < 3.0 ASSESSMENT AND PLAN:
--- NOTE | 2019-03-22 11:43 | EKG ---
Test Reason : Blood Pressure : / mmHG Vent. Rate : 054 BPM Atrial Rate : 054 BPM P-R Int : 160 ms QRS Dur : 100 ms QT Int : 418 ms P-R-T Axes : 053 074 062 degrees QTc Int : 396 ms SINUS BRADYCARDIA OTHERWISE NORMAL ECG WHEN COMPARED WITH ECG OF 14-JAN-2019 06:49, NO SIGNIFICANT CHANGE WAS FOUND Confirmed by BRIANDA WHITAKER MD ([id number]) on 03/22/2019 11:43:28 AM Referred By: Confirmed By:BRIANDA WHITAKER MD
== END 2019-03-21 17:01 | disposition home or self-care (01) ==
LOC: JER 01:42 → JERBED 05:30
PROVIDERS: ADMIT Internal Medicine; ATTEND Internal Medicine
DX: T42.6X2A Poisoning by other antiepileptic and sedative-hypnotic drugs, intentional self-harm, initial encounter (principal); R45.851 Suicidal ideations; F19.10 Other psychoactive substance abuse, uncomplicated; Y92.9 Unspecified place or not applicable; G40.909 Epilepsy, unspecified, not intractable, without status epilepticus; F17.210 Nicotine dependence, cigarettes, uncomplicated; F41.9 Anxiety disorder, unspecified; Z91.013 Allergy to seafood; Z91.5 Personal history of self-harm; F20.9 Schizophrenia, unspecified
CPT/HCPCS: 36415; 71045-TC-FY; 80053; 80156; 80164; 80178; 80307; 82140; 85025; 93005; 93010; 99284-25; G0378

== ENCOUNTER 2019-04-21 22:39 | Emergency (ER) | payer OTHER ==
[2019-04-21 22:45] VITALS: BP 122/66; PULSE 86; TEMP 99; BMI 21.1
--- NOTE | 2019-04-22 00:11 | PDOC ---
Attending Attestation - Resident Resident Name: Michelle De Oliveria - ED Attending Attestation I have performed the following: I have examined & evaluated the patient, The case was reviewed & discussed with the resident, I agree w/resident's findings & plan
[2019-04-22] MEDS ORDERED: ALBUTEROL SO4 2.5/IPRATROPIUM 0.5 INH SOL 3 ML VIAL.NEB. NEB ONE (00:44)
--- NOTE | 2019-04-22 01:10 | PDOC ---
History of Present Illness - General Chief Complaint: Hemoptysis Stated Complaint: HEMOPTYSIS Time Seen by Provider: 04/22/19 00:10 - History of Present Illness Initial Comments: Dilip West is a 18yo man with a PMH of seizures (on Depakote) and childhood asthma who presents with productive cough for 4 days. The cough has been productive of thick, greenish sputum. He saw some specks of blood in the sputum tonight and came to the ED for evaluation. He has tried taking acetaminophen and Benedryl cough medicine without significant relief. He does not believe that he has had a fever, denies known sick contacts, recent travel, or additional symptoms. He reports smoking marijuana daily but denies cigarettes. Past History - Past Medical History Allergies/Adverse Reactions: Allergies Allergy/AdvReac Type Severity Reaction Status Date / Time shellfish derived Allergy Verified 04/21/19 22:45 Home Medications: Ambulatory Orders Albuterol Sulfate Inhaler - [Ventolin HFA Inhaler -] 1 - 2 inh PO Q4H PRN #1 inhaler 04/22/19 Methylprednisolone [Medrol -] 2 mg PO ASDIR #21 tablet 04/22/19 COPD: No Psychiatric Problems: Yes Seizures: Yes - Suicide/Smoking/Psychosocial Hx Smoking Status: No Smoking History: Never smoked Have you smoked in the past 12 months: No Number of Cigarettes Smoked Daily: 10 Information on smoking cessation initiated: No Hx Alcohol Use: No Drug/Substance Use Hx: Yes Substance Use Type: None Review of Systems - Review of Systems Comments:: General: No fevers, no chills, no weight or appetite change, + malaise HEENT: No changes in vision, no changes in hearing, + congestion, no sore throat CV: No chest pain, no palpitations, no LE edema Pulm: No SOB, + cough, no wheezing GI: No nausea or vomiting, +loose stools, no melena : No frequency, no urgency, no dysuria Musc: No back pain, no joint swelling, no recent injury Skin: No rash, no lesions, no erythema Endo: No excessive thirst, no heat/cold intolerance Heme: No unusual bruising or bleeding, no swollen glands Neuro: No syncope, no numbness/tingling, no focal weakness Vasc: No claudication Psych: No recent change in mood, no SI or HI *Physical Exam - Vital Signs Last Vital Signs Temp Pulse Resp BP Pulse Ox 99.0 F 86 16 122/66 100 04/21/19 22:43 04/21/19 22:43 04/21/19 22:43 04/21/19 22:43 04/21/19 22:43 - Physical Exam Comments: General: Comfortable, no acute distress HEENT: PERRL, EOMI, MMM, voice normal, normal neck ROM, no LAD Cards: RRR, no murmur appreciated Pulm: Comfortable on room air, productive cough, no wheezing Abd: Soft, nontender, nondistended Ext: Atraumatic. No LE edema. ROM intact. Strength 5/5 and equal bilaterally Vasc: Extremities WWP. Palpable radial and pedal pulses bilaterally Skin: Normal color, no rashes or lesions Neuro: A&Ox3, CN grossly intact, normal speech, motor/sensory grossly intact and symmetric Psych: Mood appropriate to situation ED Treatment Course - RADIOLOGY Radiology Studies Ordered: Category Date Time Status CHEST PA & LAT [RAD] Stat Radiology 04/22/19 00:35 Ordered Medical Decision Making - Medical Decision Making 04/22/19 01:05 Dilip West is a 18yo man with a PMH of seizures (on Depakote) and childhood asthma who presents with productive cough for 4 days with thick, greenish sputum. - Most likely viral respiratory illness, bronchitis, possible asthma exacerbation though he is currently untreated. Less likely pneumonia, but reports symptoms are worsening. - Xray chest to r/o focal abnormalities or consolidation - Duonebs for symptoms 04/22/19 01:56 - No significant improvement from nebs - Needs xray 04/22/19 02:48 - Xray completed. Reviewed with Dr José. No focal abnormalities - Will give decadron for bronchitis w/ reactive airway disease. Plan to prescribe steroid course and albuterol inhaler - Referred to PMD to establish care - Discussed home care and follow up w/ Mr West at length. Discussed with Dr José. Michelle De Oliveira PGY1 *DC/Admit/Observation/Transfer Diagnosis at time of Disposition: Bronchitis - Prescriptions Prescriptions: Albuterol Sulfate Inhaler - [Ventolin HFA Inhaler -] 1 - 2 inh PO Q4H PRN #1 inhaler PRN Reason: Cough Methylprednisolone [Medrol -] 2 mg PO ASDIR #21 tablet - Referrals Referrals: [facility] [Provider Group] - Patient Instructions Printed Discharge Instructions: DI for Acute Bronchitis Additional Instructions: Discharge Instructions: You were seen in the ED for a productive cough. You were given a nebulizer breathing treatment for your symptoms. Home Care and Follow Up: - Usually, bronchitis and other respiratory infections are due to viruses. They are treated symptomatically. - You have been prescribed a steroid pack and an inhaler to help with your symptoms. The steroids should be started tomorrow. You may use the albuterol every 4 hours as needed for cough or shortness of breath. - You may use acetaminophen 650-1000mg (Tylenol) or ibuprofen 600mg (Advil, Motrin) for discomfort or pain. - Make sure you are staying well hydrated. Drink extra fluids - A humidifier or hot shower may help with chest congestion. - Your cough may last for several weeks even after you are feeling better. - You have been given contact information for the [facility] clinic. Call to make an appointment for follow up if you do not feel better in a week. You should also call within the next 1-2 weeks to establish care with a primary doctor. - Seek medical care if you have worsening of your symptoms, you are not better after a week, you have fever to 101F, you are unable to stay hydrated, or you have any other medical emergency. - Post Discharge Activity
[2019-04-22] MEDS ORDERED: DEXAMETHASONE SOD PHOSPHATE 10 MG/1 ML VIAL IM ONE (02:24)
--- NOTE | 2019-04-22 02:31 | PDOC ---
Documentation entered by Lisa Groves SCRIBE, acting as scribe for Melissa José DO. Melissa José DO: This documentation has been prepared by the Germain suaerz Adrianna, SCRIBE, under my direction and personally reviewed by me in its entirety. I confirm that the documentation accurately reflects all work, treatment, procedures, and medical decision making performed by me. Attending Attestation - Resident Resident Name: YenniferMichelle - ED Attending Attestation I have performed the following: I have examined & evaluated the patient, The case was reviewed & discussed with the resident, I agree w/resident's findings & plan - HPI HPI: The patient is a 18 year old male (daily marijuana user), with a significant PMH of seizure disorder (on Depakote) and childhood asthma, who presents to the emergency department today complaining cough for 4 days. Patient endorses a productive cough of green sputum. He noticed some specks of blood in his coughs today which is what prompted his visit to the ED tonight. He endorses trying acetaminophen and Benadryl without any relief. The patient denies chest pain, shortness of breath, headache and dizziness. Denies fever, chills, nausea, vomit, diarrhea and constipation. Denies dysuria, frequency, urgency and hematuria. Denies sick contacts or recent travel. Allergies: Shellfish Past surgical history: None reported Social history: Daily marijuana use 04/22/19 01:28 - Physicial Exam PE: Agree with resident exam. 04/22/19 01:28 - Medical Decision Making 04/22/19 02:29 18-year-old male with productive cough and history of chronic marijuana use X-ray shows no focal infiltrate Patient also admits to history of reactive airway disease and asthma He will be discharged on steroids as well as inhaler He was advised to refrain from smoking
[2019-04-22] MEDS ORDERED: DEXAMETHASONE SOD PHOSPHATE 10 MG/1 ML VIAL ONE (02:48)
== END 2019-04-22 03:35 | disposition home or self-care (01) ==
LOC: JER 22:39
PROC: 3E0F7GC Introduction of Other Therapeutic Substance into Respiratory Tract, Via Natural or Artificial Opening (ICD-10-PCS; principal; 2019-04-21)
PROC: 3E0233Z Introduction of Anti-inflammatory into Muscle, Percutaneous Approach (ICD-10-PCS; 2019-04-21)
DX: J40 Bronchitis, not specified as acute or chronic (principal)
CPT/HCPCS: 71046-TC-FY; 94640; 96372; 99281-25; J1100

== ENCOUNTER 2019-05-19 03:16 | Emergency (ER) | payer OTHER ==
--- NOTE | 2019-05-19 03:42 | PDOC ---
History of Present Illness - General Stated Complaint: ABD PAIN Time Seen by Provider: 05/19/19 03:37 - History of Present Illness Initial Comments: 05/19/19 04:18 The patient is a 18 year old male with a history of Seizures who presents for evaluation of abdominal pain. The patient reports onset of poorly described LUQ abdominal pain after eating food and smoking marijuana this morning prompting his presentation to the ED for further evaluation. He denies similar symptoms in the past. He otherwise denies fevers, chills, SOB, chest pain, nausea, vomiting, or changes with urination or bowel movements. The patient's last bowel movement was 1 day ago. Past History - Past Medical History Allergies/Adverse Reactions: Allergies Allergy/AdvReac Type Severity Reaction Status Date / Time shellfish derived Allergy Verified 05/19/19 03:50 Home Medications: Ambulatory Orders Albuterol Sulfate Inhaler - [Ventolin HFA Inhaler -] 1 - 2 inh PO Q4H PRN #1 inhaler 04/22/19 Methylprednisolone [Medrol -] 2 mg PO ASDIR #21 tablet 04/22/19 COPD: No Psychiatric Problems: Yes Seizures: Yes - Suicide/Smoking/Psychosocial Hx Smoking Status: No Smoking History: Never smoked Have you smoked in the past 12 months: No Number of Cigarettes Smoked Daily: 10 Hx Alcohol Use: No Drug/Substance Use Hx: Yes Substance Use Type: None Review of Systems - Review of Systems Comments:: 05/19/19 04:19 Constitutional: No fevers, chills, fatigue, malaise HEENT: No Rhinorrhea, nasal congestion, visual changes Cardiovascular: No chest pain, syncope, palpitations, lightheadedness Respiratory: No Cough, SOB, Hemoptysis, Gastrointestinal: LUQ abdominal pain. No Nausea, Vomiting, Constipation, Diarrhea, Melena Genitourinary: No Dysuria, Frequency, Urgency, Hesitancy, Hematuria, Flank pain Musculoskeletal: No Myalgia, arthralgia Skin: No rashes, itching, bruising, pallor Neurologic: No Headache, Dizziness, Numbness, Weakness, or Tingling Psychiatric: No Hallucinations. No SI or HI *Physical Exam - Physical Exam Comments: 05/19/19 04:19 General Appearance: Nourished. No Apparent Distress HEENT: No Pharyngeal Erythema, Tonsillar Exudate, Tonsillar Erythema Neck: No Cervical Lymphadenopathy Respiratory/Chest: Lungs Clear, Normal Breath Sounds. No Crackles, Rales, Rhonchi, Wheezing Cardiovascular: Regular Rhythm, Regular Rate. No Murmur, Gallops, Rubs Gastrointestinal/Abdominal: Normal Bowel Sounds, Soft. Mild LUQ discomfort with palpation on exam. No Guarding, Rebound, Musculoskeletal: No CVA Tenderness Extremity: Normal Capillary Refill Integumentary: Normal Color, Dry, Warm Neurologic: Fully Oriented, Alert, Normal Mood/Affect, Normal Response, ED Treatment Course - LABORATORY CBC & Chemistry Diagram: 05/19/19 04:17 05/19/19 04:17 Medical Decision Making - Medical Decision Making 05/19/19 04:20 The patient is a 18 year old male with a history of Seizures who presents for evaluation of abdominal pain. Given the patient's history and physical exam, we will obtain a cbc, cmp, lipase to evaluate further. We will treat with iv fluids, pepcid, maalox and continue to monitor and reassess while here in the ED. 05/19/19 05:14 CBC, cmp, lipase are unremarkable. The patient was reassessed and reports improvement in their symptoms. We are comfortable discharging the patient home in stable condition. Patient made aware of impression and plan, return precautions discussed including but not limited to worsening pain or symptoms, fevers, or signs of infection, chest pain, respiratory distress, inability to tolerate oral intake, dehydration, syncope, or neurologic changes. The patient is to follow up with PMD as recommended within 1 week, follow up information provided and the patient will call for an appointment. The patient is to take medications as instructed for duration of time and continue with supportive care , avoid triggers and precipitants. Patient is safe for outpatient follow-up. *DC/Admit/Observation/Transfer Diagnosis at time of Disposition: Abdominal pain Qualifiers: Abdominal location: unspecified location Qualified Code(s): R10.9 - Unspecified abdominal pain - Discharge Dispostion Disposition: HOME Condition at time of disposition: Stable Decision to Admit order: No - Referrals - Patient Instructions Printed Discharge Instructions: DI for Abdominal Pain-Adult Additional Instructions: 1) Please follow-up with your primary care doctor in the next 2-3 days. Please call tomorrow to schedule a follow up appointment. If you cannot follow up with your doctor within 1 week please return to the Emergency Department for any urgent issues. 2) Your laboratory results were normal here in the ER. 3) If you have any worsening of symptoms or any other concerns please return to the ER immediately. Return if worsening symptoms including fevers, headache, vomiting, visual or hearing disturbances, abdominal pain, chest pain, shortness of breath, syncope, dehydration, inability to take things by mouth/vomiting, altered mental status, or worsening concerning symptoms. 4) Please continue taking your home medications as directed. Side effects may include upset stomach, abdominal pain, vomiting, or diarrhea. Do not drink alcohol with your medications. - Post Discharge Activity
[2019-05-19 03:50] VITALS: TEMP 98; BMI 21.2
[2019-05-19] MEDS ORDERED: SODIUM CHLORIDE 1,000 ML IV STA (03:57)
[2019-05-19] MEDS ORDERED: FAMOTIDINE 20 MG/50 ML IVPB 20 MG/50 ML MG IVPB ONE ×2 (03:57→04:07)
[2019-05-19] MEDS ORDERED: MAG HYDROX/AL HYDROX/SIMETH 30 ML UNIT-DOSE CUP PO ONE (04:03)
[2019-05-19] MEDS ORDERED: MAG HYDROX/AL HYDROX/SIMETH 30 ML UNIT-DOSE CUP ONE (04:07)
--- NOTE | 2019-05-19 04:18 | PDOC ---
Attending Attestation - Resident Resident Name: Lazaro Anderson - ED Attending Attestation I have performed the following: I have examined & evaluated the patient, The case was reviewed & discussed with the resident, I agree w/resident's findings & plan, Exceptions are as noted - HPI HPI: 05/19/19 04:16 18 M with h/o seizure d/o presents to ED with LUQ pain x 2 hours. Pt states that after work, he smoked marijuana and ate shrimp. Shortly afterwards, he began to have LUQ abdominal pain. Denies N/V/D. Denies F/C. States the pain is non-radiating. Denies flank pain or dysuria. Denies scrotal pain. Denies CP/SOB. - Physicial Exam PE: 05/19/19 04:17 "GENERAL: Awake, alert, and fully oriented, in no acute distress. HEAD: No signs of trauma EYES: PERRLA, EOMI, sclera anicteric, conjunctiva clear ENT: Auricles normal inspection, hearing grossly normal, nares patent, oropharynx clear without exudates. Moist mucosa NECK: Nontender, no stepoffs, Normal ROM, supple, no lymphadenopathy, JVD, or masses LUNGS: Breath sounds equal, clear to auscultation bilaterally. No wheezes, and no crackles HEART: Regular rate and rhythm, normal S1 and S2, no murmurs, rubs or gallops ABDOMEN: + LUQ TTP, normoactive bowel sounds. No guarding, no rebound. No masses EXTREMITIES: Normal range of motion, no edema. No clubbing or cyanosis. No cords, erythema, or tenderness NEUROLOGICAL: Cranial nerves II through XII intact. 5/5 strength and sensation in all extremities, Normal speech, normal gait, normal cerebellar function SKIN: Warm, Dry, normal turgor, no rashes or lesions noted. - Medical Decision Making 05/19/19 04:17 18 M with LUQ pain. Likely gastritis vs PUD. Pt with no lower abdominal tenderness, negative elliott's. - Labs, lipase - GI cocktail 05/19/19 05:12 Labs wnl Pt reassessed - now with complete resolution of pain. Pt is well appearing, with normal vitals. Clinically stable for DC at this time. I discussed the physical exam findings, ancillary test results and final diagnoses with the patient. I answered all of the patient's questions. The patient was satisfied with the care received and felt comfortable with the discharge plan and treatment plan. The patient agrees to follow up with the primary care physician within 24-72 hours.
[2019-05-19 04:31] LABS: BASO % 0.9 % (0-2.0); EOS % 1.4 % (0-4.5); HEMATOCRIT 40.6 % (35.4-49); HEMOGLOBIN 13.5 GM/dL (11.7-16.9); LYMPH % 37.7 % (8-40); MCH 29.1 pg (25.7-33.7); MCHC 33.2 g/dl (32.0-35.9); MEAN CELL VOLUME 87.5 fl (80-96); MEAN PLT VOLUME 9.2 fl (7.5-11.1); MONO % 11.2 % (3.8-10.2); NEUT % 48.8 % (42.8-82.8); PLATELET COUNT 165 K/MM3 (134-434); RBC 4.64 M/mm3 (4.00-5.60); RDW 15.6 % (11.9-15.9); WHITE BLOOD COUNT 5.4 K/mm3 (4.0-10.0)
[2019-05-19 04:57] LABS: ALBUMIN 3.6 g/dl (3.4-5.0); BILIRUBIN,TOTAL 0.6 mg/dL (0.2-1); BLOOD UREA NITROGEN 14.5 mg/dL (7-18); CALCIUM 8.8 mg/dL (8.5-10.1); POTASSIUM 3.6 mmol/L (3.5-5.1); TOT PROT 6.4 g/dl (6.4-8.2)
[2019-05-19 05:54] VITALS: BP 117/78; PULSE 60
== END 2019-05-19 06:01 | disposition home or self-care (01) ==
LOC: JER 03:16
PROC: 3E033GC Introduction of Other Therapeutic Substance into Peripheral Vein, Percutaneous Approach (ICD-10-PCS; principal; 2019-05-19)
PROC: 3E0337Z Introduction of Electrolytic and Water Balance Substance into Peripheral Vein, Percutaneous Approach (ICD-10-PCS; 2019-05-19)
DX: R10.9 Unspecified abdominal pain (principal); R56.9 Unspecified convulsions; F17.210 Nicotine dependence, cigarettes, uncomplicated; F99 Mental disorder, not otherwise specified
CPT/HCPCS: 36415; 80053; 83690; 85025; 96361; 96365; 99282-25; J7030

== ENCOUNTER 2019-05-20 05:56 | Emergency (ER) | payer OTHER ==
[2019-05-20 06:20] VITALS: BMI 26.6
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
[2019-05-20 07:36] VITALS: BP 112/65; PULSE 62; TEMP 97.6
[2019-05-20] MEDS ORDERED: ACETAMINOPHEN 325 MG TABLET (FP) PO ONE (07:39)
[2019-05-20] MEDS ORDERED: TETANUS AND DIPHTHERIA TOXOID 0.5 ML DISP.SYRIN IM ONE (07:39)
[2019-05-20] MEDS ORDERED: MUPIROCIN CA 2% TOPICAL CREAM 15 GM TUBE TP ONE (07:40)
[2019-05-20] MEDS ORDERED: BACITRACIN 15 GM TUBE TOPICAL OINTMENT TP ONE (08:11)
[2019-05-20] MEDS ORDERED: ACETAMINOPHEN 325 MG TABLET (FP) ONE (08:14)
[2019-05-20] MEDS ORDERED: BACITRACIN 0.9 GM PACKET ONE (08:14)
[2019-05-20] MEDS ORDERED: DIPHTH,PERTUSS(ACELL),TET 0.5 ML DISP.SYRIN IM ONE (08:15)
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
== END 2019-05-20 09:58 | disposition home or self-care (01) ==
LOC: JER 05:56
DX: S31.010A Laceration without foreign body of lower back and pelvis without penetration into retroperitoneum, initial encounter (principal); X99.8XXA Assault by other sharp object, initial encounter; Y93.89 Activity, other specified; Y92.488 Other paved roadways as the place of occurrence of the external cause; Y99.8 Other external cause status; Y07.6 Multiple perpetrators of maltreatment and neglect; G40.909 Epilepsy, unspecified, not intractable, without status epilepticus
CPT/HCPCS: 71046-TC-FY; 99283-25

== ENCOUNTER 2019-06-24 03:22 | Emergency (ER) | payer OTHER | END 2019-06-24 06:29 | disposition home or self-care (01) | LOC: JER 03:22 ==

== ENCOUNTER 2019-07-01 01:52 | Emergency (ER) | payer OTHER ==
[2019-07-01 03:10] VITALS: BP 129/77; PULSE 98; TEMP 98.1; BMI 27.8
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
[2019-07-01] MEDS ORDERED: IBUPROFEN 600 MG TABLET (FP) PO ONE ×2 (04:13→04:29)
--- NOTE | 2019-07-01 04:17 | PDOC ---
*Physical Exam - Vital Signs Last Vital Signs Temp Pulse Resp BP Pulse Ox 98.1 F 98 H 18 129/77 97 07/01/19 01:52 07/01/19 01:52 07/01/19 01:52 07/01/19 01:52 07/01/19 01:52 Medical Decision Making - Medical Decision Making 07/01/19 04:17 Patient seen by the advanced practice provider under my direct supervision. Ancillary testing reviewed as necessary. I agree with plan as outlined by the advanced practice provider. *DC/Admit/Observation/Transfer Diagnosis at time of Disposition: Rib pain on right side, Polysubstance abuse - Discharge Dispostion Disposition: HOME Condition at time of disposition: Fair - Referrals Referrals: Carlie Kline [Primary Care Provider] - - Patient Instructions Printed Discharge Instructions: DI for Musculoskeletal Pain Additional Instructions: you may take tylenol every 6 hours as needed for pain apply ice to the area please follow up for your psychiatric care [place] [id number] [address] - Post Discharge Activity
== END 2019-07-01 05:34 | disposition home or self-care (01) ==
LOC: JER 01:52
DX: R07.81 Pleurodynia (principal); F19.10 Other psychoactive substance abuse, uncomplicated; R56.9 Unspecified convulsions; F20.9 Schizophrenia, unspecified; F31.9 Bipolar disorder, unspecified; Z87.891 Personal history of nicotine dependence; W50.0XXA Accidental hit or strike by another person, initial encounter; Y93.79 Activity, other specified sports and athletics; Y92.89 Other specified places as the place of occurrence of the external cause
CPT/HCPCS: 71046-TC-FY; 71101-TC-RT-FY; 99281-25

== ENCOUNTER 2019-07-28 23:29 | Emergency (ER) | payer OTHER | END 2019-07-29 16:45 | disposition home or self-care (01) | LOC: JER 23:29 ==

== ENCOUNTER 2019-08-04 06:22 | Emergency (ER) | payer OTHER ==
[2019-08-04 06:52] VITALS: BP 107/53; PULSE 52; TEMP 98.1; BMI 29.6
[2019-08-04] MEDS ORDERED: IBUPROFEN 400 MG TABLET (FP) PO ONE ×2 (08:00→08:01)
--- NOTE | 2019-08-04 09:09 | PDOC ---
History of Present Illness - General Chief Complaint: Sore Throat Stated Complaint: SORE THROAT Time Seen by Provider: 08/04/19 07:36 History Source: Patient Exam Limitations: No Limitations - History of Present Illness Initial Comments: 08/04/19 08:05 19-year-old male with no past medical history presents to the ED with complaints of sore throat since yesterday without fever, chills but states painful with swallowing and speaking. Patient denies recent travel or recent illness. Is this a multiple visit Asthma Patient?: No Timing/Duration: 24 hours Severity: mild Associated Symptoms: reports: other Past History - Travel Traveled outside of the country in the last 30 days: Yes - Past Medical History Allergies/Adverse Reactions: Allergies Allergy/AdvReac Type Severity Reaction Status Date / Time shellfish derived Allergy Verified 08/04/19 06:43 Home Medications: Ambulatory Orders Divalproex Sodium [Depakote] 1,000 mg PO BID 07/04/19 Divalproex Sodium [Depakote] 1,000 mg PO BID 14 Days #56 tablet. 07/04/19 COPD: No Psychiatric Problems: Yes (SCHIZOPHRENIA,BIPOLAR) Seizures: Yes - Immunization History Td Vaccination: Yes TDAP Vaccination: Yes Immunization Up to Date: Yes - Suicide/Smoking/Psychosocial Hx Smoking Status: No Smoking History: Current every day smoker Have you smoked in the past 12 months: Yes Number of Cigarettes Smoked Daily: 2 Information on smoking cessation initiated: No Hx Alcohol Use: No Drug/Substance Use Hx: Yes (weed) Substance Use Type: None Patient Lives Alone: No Lives with/in: parents Review of Systems - Review of Systems Able to Perform ROS?: Yes Constitutional: No: Symptoms Reported HEENTM: Yes: Throat Pain, Difficulty Swallowing Respiratory: No: Symptoms reported Cardiac (ROS): No: Symptoms Reported ABD/GI: No: Symptoms Reported : No: Symptoms Reported Musculoskeletal: No: Symptoms Reported Integumentary: No: Symptoms Reported Neurological: No: Symptoms reported Endocrine: No: Symptoms Reported *Physical Exam - Vital Signs Last Vital Signs Temp Pulse Resp BP Pulse Ox 98.1 F 52 L 18 107/53 L 97 08/04/19 06:43 08/04/19 06:43 08/04/19 06:43 08/04/19 06:43 08/04/19 06:43 - Physical Exam General Appearance: Yes: Nourished, Appropriately Dressed. No: Apparent Distress HEENT: positive: EOMI, DIONISIO, Normal Voice, TMs Normal, Pharyngeal Erythema (mild , no exudate no petechiae no tonsillar enlargement) Neck: positive: Supple. negative: Lymphadenopathy (R), Lymphadenopathy (L) Cardiovascular: positive: Regular Rhythm, Regular Rate. negative: Murmur Gastrointestinal/Abdominal: positive: Soft. negative: Tenderness Integumentary: positive: Normal Color, Warm, Moist Neurologic: positive: Motor Strength 5/5 (ambulatory) ED Treatment Course - Medications Given in the ED: ED Medications Discontinued Medications Generic Name Dose Route Start Last Admin Trade Name Freq PRN Reason Stop Dose Admin Ibuprofen 400 mg 08/04/19 08:00 08/04/19 08:02 Motrin - PO 08/04/19 08:01 400 mg ONCE ONE Administration Medical Decision Making - Medical Decision Making 08/04/19 08:08 Chief complaint: Sore throat since yesterday no other complaints Exam: mild erythema to posterior pharynx with no exudate or tonsillar enlargement. No fever. Plan: Motrin and rapid strep collected *DC/Admit/Observation/Transfer Diagnosis at time of Disposition: Sore throat - Discharge Dispostion Disposition: HOME Condition at time of disposition: Good - Referrals - Patient Instructions Printed Discharge Instructions: Sore Throat Additional Instructions: Take Motrin as needed for discomfort. Drink plenty of fluids. Eat soft foods. - Post Discharge Activity
== END 2019-08-04 09:25 | disposition home or self-care (01) ==
LOC: JER 06:22
DX: J02.9 Acute pharyngitis, unspecified (principal); G40.909 Epilepsy, unspecified, not intractable, without status epilepticus; F31.9 Bipolar disorder, unspecified; F20.9 Schizophrenia, unspecified; Z91.013 Allergy to seafood
CPT/HCPCS: 87070; 87880; 99282-25

== ENCOUNTER 2019-12-18 05:19 | Emergency (ER) | payer OTHER ==
[2019-12-18 05:40] VITALS: BMI 27.3
[2019-12-18] MEDS ORDERED: IBUPROFEN 600 MG TABLET (FP) PO ONE ×2 (06:09→06:27)
[2019-12-18] MEDS ORDERED: SODIUM CHLORIDE 0.9% 500 ML INFUS.BAG IV ONE (06:09)
[2019-12-18 06:37] LABS: BASO % 0.6 % (0-2.0); HEMOGLOBIN 13.4 GM/dL (11.7-16.9); LYMPH % 29.5 % (8-40); MCH 30.4 pg (25.7-33.7); MCHC 33.6 g/dl (32.0-35.9); MEAN CELL VOLUME 90.6 fl (80-96); MONO % 4.2 % (3.8-10.2); NEUT % 64.7 % (42.8-82.8); PLATELET COUNT 211 K/MM3 (134-434); RBC 4.41 M/mm3 (4.00-5.60); RDW 14.6 % (11.9-15.9); WHITE BLOOD COUNT 10.7 K/mm3 (4.0-10.0)
[2019-12-18] MEDS ORDERED: FAMOTIDINE 20 MG/50 ML IVPB 20 MG/50 ML MG IVPB ONE ×2 (07:30→07:52)
[2019-12-18] MEDS ORDERED: ONDANSETRON 4 MG/2 ML VIAL IVPUSH ONE (07:32)
--- NOTE | 2019-12-18 07:32 | PDOC ---
History of Present Illness - General Chief Complaint: Cold Symptoms Stated Complaint: FLU-LIKE SYMPTOMS Time Seen by Provider: 12/18/19 07:21 - History of Present Illness Initial Comments: Dilip West is a 19yo man with a PMH of seizures (on depakote) who presents with sore throat, vomiting, and diarrhea that started overnight. He states that he felt well yesterday during the day but woke overnight with 3 episodes of vomiting. The emesis was nonbloody, nonbilious. He additionally had diarrhea, though he is unable to specify how many episodes or describe the diarrhea. He denies any nasal congestion, ear pain, cough, difficulty breathing, chest pain, sick contacts, recent travel, change in diet, or suspicous foods. Past History - Past Medical History Allergies/Adverse Reactions: Allergies Allergy/AdvReac Type Severity Reaction Status Date / Time shellfish derived Allergy Verified 12/18/19 05:40 Home Medications: Ambulatory Orders Divalproex Sodium [Depakote] 1,000 mg PO BID 07/04/19 Divalproex Sodium [Depakote] 1,000 mg PO BID 14 Days #56 tablet. 07/04/19 COPD: No Psychiatric Problems: Yes (SCHIZOPHRENIA,BIPOLAR) Seizures: Yes - Immunization History Td Vaccination: Yes TDAP Vaccination: Yes Immunization Up to Date: Yes - Psycho Social/Smoking Cessation Hx Smoking Status: No Smoking History: Current some day smoker Have you smoked in the past 12 months: Yes Number of Cigarettes Smoked Daily: 10 Information on smoking cessation initiated: No Hx Alcohol Use: Yes Drug/Substance Use Hx: Yes Substance Use Type: None Review of Systems - Review of Systems Comments:: General: No fevers, no chills, no weight or appetite change, no malaise HEENT: No changes in vision, no changes in hearing, no congestion, + sore throat CV: No chest pain, no palpitations, no LE edema Pulm: No SOB, no cough, no wheezing GI: +Vomiting, +Diarrhea, see HPI : No frequency, no urgency, no dysuria Musc: No back pain, no joint swelling, no recent injury Skin: No rash, no lesions, no erythema Endo: No excessive thirst, no heat/cold intolerance Heme: No unusual bruising or bleeding, no swollen glands Neuro: No syncope, no numbness/tingling, no focal weakness. +h/o seizures Vasc: No claudication Psych: No recent change in mood, no SI or HI *Physical Exam - Vital Signs Last Vital Signs Temp Pulse Resp BP Pulse Ox 98.2 F 76 19 115/67 100 12/18/19 06:59 12/18/19 06:59 12/18/19 06:59 12/18/19 06:59 12/18/19 06:59 - Physical Exam General: Comfortable, no acute distress HEENT: PERRL, EOMI, MMM, voice normal, normal neck ROM. No pharyngeal erythema, edema, or exudate Cards: RRR, no murmur appreciated Pulm: Comfortable on room air, clear to auscultation bilaterally Abd: Soft, nontender, nondistended Ext: Atraumatic. No LE edema. ROM intact. WWP Skin: Normal color, no rashes or lesions. Multiple well-healed scars on forearms c/w cutting Neuro: A&Ox3, CN grossly intact, normal speech, motor/sensory grossly intact and symmetric Psych: Mood appropriate to situation ED Treatment Course - LABORATORY CBC & Chemistry Diagram: 12/18/19 06:12 12/18/19 06:12 - ADDITIONAL ORDERS Additional order review: 12/18/19 06:12 RBC 4.41 MCV 90.6 MCHC 33.6 RDW 14.6 MPV 9.0 Neutrophils % 64.7 Lymphocytes % 29.5 D Monocytes % 4.2 Eosinophils % 1.0 Basophils % 0.6 - Medications Given in the ED: ED Medications Discontinued Medications Generic Name Dose Route Start Last Admin Trade Name Freq PRN Reason Stop Dose Admin Ibuprofen 600 mg 12/18/19 06:09 12/18/19 06:34 Motrin - PO 12/18/19 06:10 600 mg ONCE ONE Administration Sodium Chloride 1,000 ml 12/18/19 06:09 12/18/19 06:34 Normal Saline - IV 12/18/19 06:10 1,000 ml ONCE ONE Administration Medical Decision Making - Medical Decision Making 12/18/19 07:31 Dilip West is a 19yo man with a PMH of seizures (on depakote) who presents with sore throat, 3x NBNB vomiting, and diarrhea that started overnight. He denies fever, respiratory symptoms, suspicious foods, or recent travel. - Most likely viral illness given benign exam. No erythema or exudate on pharyngeal exam, strep unlikely. No respiratory symptoms, congestion, rhinorrhea ; influenza unlikely. - CBC, CMP, depakote level, rapid strep sent prior to exam - CXR and EKG discontinued given no chest pain, cough, or other pertinent symptoms - Ibuprofen, IVF given. Adding famotidine and zofran given vomiting 12/18/19 08:01 - Labs reviewed. No concerning abnormalities. Flu and strep negative - Will reassess after pt receives additional medications, most likely d/c home with PMD follow up 12/18/19 09:14 - Patient feeling improved - Given home care instructions, return precautions. Will d/c home Discussed with Dr Ayde De Oliveira PGY2 Discharge - Discharge Information Problems reviewed: Yes Clinical Impression/Diagnosis: Viral illness Condition: Stable Disposition: HOME - Admission No - Follow up/Referral Referrals: [facility] [place] [facility] [place] [Provider Group] - Patient Discharge Instructions Patient Printed Discharge Instructions: DI for Viral Upper Respiratory Infection -- Adult Additional Instructions: Discharge Instructions: You were seen in the emergency department for sore throat, vomiting, and diarrhea. You had flu and strep tests sent that were negative. Your symptoms are most likely caused by a viral infection, and you should feel better within a week without any additional treatment. Home Care and Follow Up: - Make sure you are drinking plenty of fluids while you are sick. Increase your normal fluid intake. It is OK if you do not feel like eating as long as you are staying well hydrated - You may use medications such as acetaminophen (Tylenol) 650-1000mg or ibuprofen (Advil, Motrin) 400-600mg every 6 hours as needed for pain or fever over 101F - Consider placing a humidifier in your room overnight to help relieve congestion and reduce drying of your nose and mouth. - Use throat lozenges (cough drops) for sore throat or cough. Consider lozenges that contain a numbing medication, benzocaine, such as Cepacol lozenges for your sore throat. These may be used every 4 hours as needed. Use regular cough drops in between. - If you use additional cold medications, make sure they do not contain medicines you are already taking such as acetaminophen or ibuprofen - You should feel better within a week. If you are not feeling better in a week , follow up with your primary doctor. If you need to see a new doctor, you have been referred to the [facility] [place]. - Seek immediate care if you have worsening symptoms, you are unable to stay hydrated, you develop high fevers over 104F that do not come down with medication, or you have any other medical emergency. - Post Discharge Activity Work/Back to School Note: Back to Work
[2019-12-18] MEDS ORDERED: ONDANSETRON 4 MG/2 ML VIAL ONE (07:52)
[2019-12-18 07:59] LABS: ALBUMIN 3.8 g/dl (3.4-5.0); BILIRUBIN,TOTAL 0.4 mg/dL (0.2-1); BLOOD UREA NITROGEN 13.2 mg/dL (7-18); CALCIUM 9.3 mg/dL (8.5-10.1); POTASSIUM 4.3 mmol/L (3.5-5.1); TOT PROT 6.9 g/dl (6.4-8.2)
--- NOTE | 2019-12-18 08:18 | PDOC ---
Attending Attestation - Resident Resident Name: Michelle De Oliveira - ED Attending Attestation I have performed the following: I have examined & evaluated the patient, The case was reviewed & discussed with the resident, I agree w/resident's findings & plan - HPI HPI: 12/18/19 08:16 19-year-old male with history of seizures presents with 1 day symptoms of rhinorrhea, chills, body aches, reported episode of vomiting. No recent travel, no direct sick contacts, smokes marijuana daily but denies any tobacco use or alcohol or drug use. Compliant with his Depakote, denies any seizure activity. No recurring history of infections or pneumonia, has no other complaints. - Physicial Exam PE: 12/18/19 08:17 Vital signs stable, comfortably asleep but arouses to voice and is conversant Voice is clear, oropharynx is clear, moist mucosa No sinus tenderness, heart is regular, lungs are clear Abdomen benign No rash, some old superficial linear abrasions to his arm No acute psych issues - Medical Decision Making 12/18/19 08:18 19-year-old male with URI and episode of vomiting, afebrile here with nonlocalizing examination. Presentation seems most consistent with viral syndrome, rule out influenza, no evidence for strep or pneumonia. Labs sent prior to arrival, no leukocytosis Influenza and strep negative No indication for emergent chest x-ray Given Pepcid and Zofran, will DC with antipyretics and URI symptom control PCP referral, understands return criteria
[2019-12-18 10:14] VITALS: BP 105/60; PULSE 52; TEMP 98.1
--- NOTE | 2019-12-20 14:35 | EKG ---
Test Reason : Blood Pressure : / mmHG Vent. Rate : 043 BPM Atrial Rate : 043 BPM P-R Int : 156 ms QRS Dur : 096 ms QT Int : 454 ms P-R-T Axes : 061 083 072 degrees QTc Int : 383 ms MARKED SINUS BRADYCARDIA WITH SINUS ARRHYTHMIA MINIMAL VOLTAGE CRITERIA FOR LVH, MAY BE NORMAL VARIANT ABNORMAL ECG Confirmed by MD EWA, ANGELIA ([id number]) on 12/20/2019 2:34:46 PM Referred By: Confirmed By:ANGELIA MCNEIL MD
== END 2019-12-18 10:00 | disposition home or self-care (01) ==
LOC: JER 05:19
PROC: 3E033GC Introduction of Other Therapeutic Substance into Peripheral Vein, Percutaneous Approach (ICD-10-PCS; principal; 2019-12-18)
DX: B34.9 Viral infection, unspecified (principal); Z91.013 Allergy to seafood; R56.9 Unspecified convulsions
CPT/HCPCS: 36415; 80053; 80164; 85025; 87070; 87804; 87880; 93005; 93010; 99282-25

== ENCOUNTER 2019-12-29 01:34 | Emergency (ER) | payer OTHER ==
[2019-12-29 01:46] VITALS: BP 100/66; PULSE 72; TEMP 98.3; BMI 24.3
--- NOTE | 2019-12-29 01:54 | PDOC ---
Attending Attestation - Resident Resident Name: Myrna Sommer - ED Attending Attestation I have performed the following: I have examined & evaluated the patient, The case was reviewed & discussed with the resident, I agree w/resident's findings & plan - HPI HPI: 12/29/19 01:53 Pt comes with a FOOSH; [place] the train [place] 12/29/19 03:07 Pt has a runny nose and also complaining of pain in his throat - Physicial Exam PE: 12/29/19 03:08 Nasal congestion HEENT normal otherwise Heart [id number] lungs CTAb abd soft NT ND + BS - Medical Decision Making 12/29/19 03:08 Rapid strep negative Pt has no fractures in his wrist; however he has scaphoid tenderness; we will immobilize wrist and thumb with a thumb spica splint. Follow with ortho
[2019-12-29] MEDS ORDERED: IBUPROFEN 600 MG TABLET (FP) PO ONE ×2 (02:02→02:04)
--- NOTE | 2019-12-29 02:16 | PDOC ---
History of Present Illness - General Chief Complaint: Injury Stated Complaint: FALL,RIGHT WRIST INJURY Time Seen by Provider: 12/29/19 01:40 History Source: Patient Exam Limitations: No Limitations - History of Present Illness Initial Comments: 12/29/19 02:13 19y M with PMH of seizures, mood disorders presenting to ED for R wrist pain. Pt states [place] the [place] and tripped over his shoelace and landed on an outstretched hand. Endorses pain to the R lateral wrist. Denies LOC, numbness, coldness. He also states that he has been having sore throat, congestion, n/v for the past few days but is still able to tolerate po. Denies fever, chills, chest pain, sob, earache, headache. Past History - Past Medical History Allergies/Adverse Reactions: Allergies Allergy/AdvReac Type Severity Reaction Status Date / Time shellfish derived Allergy Verified 12/29/19 01:46 Home Medications: Ambulatory Orders Divalproex Sodium [Depakote] 1,000 mg PO BID 07/04/19 Divalproex Sodium [Depakote] 1,000 mg PO BID 14 Days #56 tablet. 07/04/19 COPD: No Psychiatric Problems: Yes (SCHIZOPHRENIA,BIPOLAR) Seizures: Yes - Immunization History Td Vaccination: Yes TDAP Vaccination: Yes Immunization Up to Date: Yes - Psycho Social/Smoking Cessation Hx Smoking Status: No Smoking History: Current every day smoker Have you smoked in the past 12 months: Yes Number of Cigarettes Smoked Daily: 12 Information on smoking cessation initiated: No Hx Alcohol Use: No Drug/Substance Use Hx: No Substance Use Type: None Review of Systems - Review of Systems Constitutional: No: Symptoms Reported HEENTM: Yes: See HPI Respiratory: Yes: See HPI Cardiac (ROS): No: Symptoms Reported ABD/GI: Yes: See HPI : No: Symptoms Reported Musculoskeletal: Yes: See HPI Integumentary: No: Symptoms Reported Neurological: No: Symptoms reported *Physical Exam - Vital Signs Last Vital Signs Temp Pulse Resp BP Pulse Ox 98.3 F 72 18 100/66 100 12/29/19 01:38 12/29/19 01:38 12/29/19 01:38 12/29/19 01:38 12/29/19 01:38 - Physical Exam General Appearance: Yes: Nourished, Appropriately Dressed, Other (laying in stretcher, using phone with R hand). No: Apparent Distress HEENT: positive: EOMI, DIONISIO, Tonsillar Exudate, Nasal Congestion. negative: Tonsillar Erythema Neck: positive: Trachea midline, Supple. negative: Lymphadenopathy (R), Lymphadenopathy (L) Respiratory/Chest: positive: Lungs Clear, Normal Breath Sounds. negative: Crackles, Rales, Rhonchi, Stridor, Wheezing Cardiovascular: positive: Regular Rhythm, Regular Rate, S1, S2. negative: Edema , JVD, Murmur Gastrointestinal/Abdominal: positive: Normal Bowel Sounds, Soft. negative: Tender Musculoskeletal: positive: Other (R snuffbox tenderness). negative: CVA Tenderness Extremity: positive: Normal Capillary Refill. negative: Swelling, Calf Tenderness Integumentary: positive: Normal Color, Dry, Warm, Other (old self inflicted cutting scars on L wrist x3) Neurologic: positive: instructor of sociology II-XII NML intact, Fully Oriented, Alert, Normal Mood/ Affect, Normal Response, Motor Strength 5/5 Procedures - Splinting Splint Location: Right: Wrist Pre-Proc Neuro Vasc Exam: normal Hand-Made Type: orthoglass Splint Type: Yes: Thumb Spica Eric Bandage: yes Complications: No Post splint xray: No ED Treatment Course - RADIOLOGY Radiology Studies Ordered: Category Date Time Status WRIST W/HAND-RIGHT* [RAD] Stat Radiology 12/29/19 01:51 Ordered - Medications Given in the ED: ED Medications Discontinued Medications Generic Name Dose Route Start Last Admin Trade Name Danialq PRN Reason Stop Dose Admin Ibuprofen 600 mg 12/29/19 02:02 12/29/19 02:04 Motrin - PO 12/29/19 02:03 600 mg ONCE ONE Administration Medical Decision Making - Medical Decision Making 12/29/19 02:15 19y M presenting to ER for R wrist pain s/p FOOSH and sore throat. pt is afebrile, using phone with R hand. has tenderness to palpation to snuffbox. fracture v. sprain. -xr, ibuprofen exudates seen on tonsils, will swab for strep. 12/29/19 07:35 xr negative per my read strep negative will place in thumb spica splint, and ortho f/u. Discharge - Discharge Information Problems reviewed: Yes Clinical Impression/Diagnosis: Wrist pain, right Scaphoid fracture, wrist, closed Qualifiers: Encounter type: initial encounter Scaphoid bone location: unspecified portion of scaphoid Fracture alignment: nondisplaced Laterality: right Qualified Code(s) : S62.001A - Unspecified fracture of navicular [scaphoid] bone of right wrist, initial encounter for closed fracture Condition: Improved Disposition: HOME - Admission No - Follow up/Referral Referrals: Krishna Camacho DO [Staff Physician] - Lisandro Shelley DO [Staff Physician] - Benny Martinez MD [Staff Physician] - Pedro Rossi MD [Staff Physician] - Nabor Murcia MD [Staff Physician] - Berry Noonan MD [Staff Physician] - Shayan Jeff MD [Staff Physician] - - Patient Discharge Instructions Patient Printed Discharge Instructions: Wrist Fracture Additional Instructions: You were seen in the ER for wrist pain. The xray does not show a fracture but we have concern for a scaphoid fracture which may not be seen on xrays initially. The swelling and pain may be worse tomorrow. Wear the splint until told otherwise by an orthopedic doctor. I recommend following up with one next week. Referrals are provided below. The strep test is negative. You can take ibuprofen/Advil or Tylenol for the pain as needed. Keep yourself well hydrated. Come back to the ER for worsening pain, numbness, color change of the skin or if any new or concerning symptom develops. Thank you - Post Discharge Activity
== END 2019-12-29 03:16 | disposition home or self-care (01) ==
LOC: JER 01:34
PROC: 2W3CX1Z Immobilization of Right Lower Arm using Splint (ICD-10-PCS; principal; 2019-12-29)
DX: S62.001A Unspecified fracture of navicular [scaphoid] bone of right wrist, initial encounter for closed fracture (principal); W18.39XA Other fall on same level, initial encounter; Y93.89 Activity, other specified; Y92.522 Railway station as the place of occurrence of the external cause; Y99.8 Other external cause status; G40.909 Epilepsy, unspecified, not intractable, without status epilepticus; F20.9 Schizophrenia, unspecified; F31.9 Bipolar disorder, unspecified; F17.210 Nicotine dependence, cigarettes, uncomplicated; Z91.013 Allergy to seafood
CPT/HCPCS: 29126; 73110-TC-RT-FY; 73130-TC-RT-FY; 87070; 87880; 99283-25

== ENCOUNTER 2020-01-03 01:59 | Emergency (ER) | payer OTHER ==
[2020-01-03 02:12] VITALS: TEMP 97.8; BMI 23.7
--- NOTE | 2020-01-03 03:20 | PDOC ---
History of Present Illness - General Chief Complaint: Pain, Acute Stated Complaint: ABD PAIN, DIARRHEA,VOMITING Time Seen by Provider: 01/03/20 03:19 History Source: Patient Exam Limitations: No Limitations - History of Present Illness Initial Comments: 01/03/20 03:20 19yM w PMHx seizure, mood disorders presenting w 2d nausea/vomiting, diarrhea, mild R flank/RLQ pain. Denies nausea/vomiting on exam. Denies fevers, chest pain , SOB, pyuria. Denies alcohol, illicit drug use. Past History - Past Medical History Allergies/Adverse Reactions: Allergies Allergy/AdvReac Type Severity Reaction Status Date / Time shellfish derived Allergy Verified 01/03/20 02:10 Home Medications: Ambulatory Orders Divalproex Sodium [Depakote] 1,000 mg PO BID 14 Days #56 tablet. 07/04/19 Ondansetron [Zofran *Odt*] 4 mg SL TID #6 od.tablet 01/03/20 COPD: No Psychiatric Problems: Yes (SCHIZOPHRENIA,BIPOLAR) Seizures: Yes - Immunization History Td Vaccination: Yes TDAP Vaccination: Yes Immunization Up to Date: Yes - Psycho Social/Smoking Cessation Hx Smoking Status: No Smoking History: Current every day smoker Have you smoked in the past 12 months: No Number of Cigarettes Smoked Daily: 5 Information on smoking cessation initiated: No Hx Alcohol Use: Yes Drug/Substance Use Hx: Yes (MARIJUANA 10 JOINTS A DAY) Substance Use Type: None Review of Systems - Review of Systems Constitutional: No: Chills, Fever HEENTM: No: Eye Pain, Nose Pain Respiratory: No: Cough, Shortness of Breath Cardiac (ROS): No: Chest Pain, Palpitations ABD/GI: Yes: Diarrhea, Nausea, Vomiting. No: Abdominal Distended, Constipated : No: Burning, Dysuria Musculoskeletal: No: Back Pain, Joint Pain Integumentary: No: Bruising, Flushing Neurological: No: Headache, Seizure Psychiatric: No: Anxiety, Depression Endocrine: No: Intolerance to Cold, Intolerance to Heat Hematologic/Lymphatic: No: Anemia, Blood Clots *Physical Exam - Vital Signs Last Vital Signs Temp Pulse Resp BP Pulse Ox 97.8 F 50 L 20 113/70 99 01/03/20 02:10 01/03/20 02:10 01/03/20 02:10 01/03/20 02:10 01/03/20 02:10 - Physical Exam General Appearance: Yes: Nourished, Appropriately Dressed, Mild Distress HEENT: positive: EOMI, DIONISIO, Normal Voice, Hearing Grossly Normal Respiratory/Chest: positive: Lungs Clear, Normal Breath Sounds. negative: Chest Tender, Respiratory Distress Cardiovascular: positive: Regular Rhythm, S1, S2, Bradycardia. negative: Edema , Murmur Gastrointestinal/Abdominal: positive: Normal Bowel Sounds, Tender (mild RLQ, R flank), Flat, Soft. negative: Organomegaly, Distended, Guarding, Rebound Musculoskeletal: negative: CVA Tenderness (R), CVA Tenderness (L) Integumentary: positive: Normal Color, Dry Neurologic: positive: transportation associate II-XII NML intact, Fully Oriented, Alert, Normal Response, Responsive. negative: Confused, Disoriented ED Treatment Course - LABORATORY CBC & Chemistry Diagram: 01/03/20 04:14 01/03/20 04:14 Medical Decision Making - Medical Decision Making 01/03/20 03:33 19yM w PMHx seizure, mood disorders presenting w 2d nausea/vomiting, diarrhea, mild R flank/RLQ pain. gastroenteritis vs UTI vs kidney stone. Low concern for appendicitis vs cholecystitis vs pancreatitis (normal lipase) Given 1L NS, tylenol Anticipate DC home w zofran prescription - pending CMP, UA Signed off to day team Discharge - Discharge Information Problems reviewed: Yes Clinical Impression/Diagnosis: Abdominal pain Qualifiers: Abdominal location: right lower quadrant Qualified Code(s): R10.31 - Right lower quadrant pain Condition: Improved - Additional Discharge Information Prescriptions: Ondansetron [Zofran *Odt*] 4 mg SL TID #6 od.tablet - Follow up/Referral - Patient Discharge Instructions Additional Instructions: Take tylenol or ibuprofen if you have pain. Take the prescribed zofran if you are vomiting Drink lots of water Follow up with your primary care doctor - Post Discharge Activity
--- NOTE | 2020-01-03 03:26 | PDOC ---
Attending Attestation - Resident Resident Name: Elliott Oconnor - ED Attending Attestation I have performed the following: I have examined & evaluated the patient, The case was reviewed & discussed with the resident, I agree w/resident's findings & plan - HPI HPI: 01/03/20 03:30 Pt comes with diarrhea and vomiting; now with bilateral lower quadrant pain. He has no PMHx. He works at [employer] Pt has no fever here. No dysuria - Physicial Exam PE: 01/03/20 03:30 Pt has no flank pain. Afebrile VSS heart bc reg rhythm no lung pain no neuro findings No rashes Pt appears minimally discomfort - Medical Decision Making 01/03/20 05:57 Pt has a normal CBC Lipase normal Chem pending Pt is resting comfortably 01/04/20 05:21 Pt will be signed out to the day team
[2020-01-03] MEDS ORDERED: SODIUM CHLORIDE 0.9% 500 ML INFUS.BAG IV ONE (03:28)
[2020-01-03] MEDS ORDERED: ACETAMINOPHEN 1000 MG/100 ML VIAL (NON FORMULARY) IVPB ONE (03:28)
[2020-01-03] MEDS ORDERED: ACETAMINOPHEN INJECTION 100 ML IVPB ONE (04:16)
[2020-01-03 05:38] LABS: BASO % 0.7 % (0-2.0); EOS % 0.8 % (0-4.5); HEMATOCRIT 38.3 % (35.4-49); HEMOGLOBIN 12.9 GM/dL (11.7-16.9); LYMPH % 47.3 % (8-40); MCH 30.2 pg (25.7-33.7); MCHC 33.7 g/dl (32.0-35.9); MEAN CELL VOLUME 89.6 fl (80-96); MEAN PLT VOLUME 9.7 fl (7.5-11.1); MONO % 4.3 % (3.8-10.2); NEUT % 46.9 % (42.8-82.8); PLATELET COUNT 216 K/MM3 (134-434); RBC 4.27 M/mm3 (4.00-5.60); RDW 14.1 % (11.9-15.9); WHITE BLOOD COUNT 8.2 K/mm3 (4.0-10.0)
[2020-01-03 07:02] VITALS: BP 107/68; PULSE 65
--- NOTE | 2020-01-03 07:33 | PDOC ---
ED Treatment Course - LABORATORY CBC & Chemistry Diagram: 01/03/20 04:14 01/03/20 04:14 - Medications Given in the ED: ED Medications Discontinued Medications Generic Name Dose Route Start Last Admin Trade Name Freq PRN Reason Stop Dose Admin Acetaminophen 1,000 mg 01/03/20 03:28 01/03/20 04:31 Ofirmev Injection - IVPB 01/03/20 03:29 1,000 mg ONCE ONE Administration Sodium Chloride 1,000 ml 01/03/20 03:28 01/03/20 04:31 Normal Saline - IV 01/03/20 03:29 1,000 ml ONCE ONE Administration Medical Decision Making - Medical Decision Making Pt signed out to me by Dr. Flaherty, see prior note. 19 year old male with PMH seizure disorder, mood disorder presented to ED for right sided flank pain, RLQ pain, nausea/vomiting x2 days. Pt reported his nausea/vomiting had resolved by time he was evaluated in the ED. Initial Vital Signs Temp Pulse Resp BP Pulse Ox 97.8 F 50 L 20 113/70 99 01/03/20 02:10 01/03/20 02:10 01/03/20 02:10 01/03/20 02:10 01/03/20 02:10 Afebrile. Bradycardic. No tachypnea. No hypotension. No hypoxia on room air. ED Medications Discontinued Medications Generic Name Dose Route Start Last Admin Trade Name Freernie PRN Reason Stop Dose Admin Acetaminophen 1,000 mg 01/03/20 03:28 01/03/20 04:31 Ofirmev Injection - IVPB 01/03/20 03:29 1,000 mg ONCE ONE Administration Sodium Chloride 1,000 ml 01/03/20 03:28 01/03/20 04:31 Normal Saline - IV 01/03/20 03:29 1,000 ml ONCE ONE Administration Pt is pending lab results. Night team reported pain is improved with Tylenol and normal saline bolus. 01/03/20 08:17 Laboratory Last Values WBC 8.2 K/mm3 (4.0-10.0) 01/03/20 04:14 RBC 4.27 M/mm3 (4.00-5.60) 01/03/20 04:14 Hgb 12.9 GM/dL (11.7-16.9) 01/03/20 04:14 Hct 38.3 % (35.4-49) 01/03/20 04:14 MCV 89.6 fl (80-96) 01/03/20 04:14 MCH 30.2 pg (25.7-33.7) 01/03/20 04:14 MCHC 33.7 g/dl (32.0-35.9) 01/03/20 04:14 RDW 14.1 % (11.9-15.9) 01/03/20 04:14 Plt Count 216 K/MM3 (134-434) 01/03/20 04:14 MPV 9.7 fl (7.5-11.1) 01/03/20 04:14 Absolute Neuts (auto) 3.9 K/mm3 (1.5-8.0) 01/03/20 04:14 Neutrophils % 46.9 % (42.8-82.8) D 01/03/20 04:14 Lymphocytes % 47.3 % (8-40) H D 01/03/20 04:14 Monocytes % 4.3 % (3.8-10.2) 01/03/20 04:14 Eosinophils % 0.8 % (0-4.5) 01/03/20 04:14 Basophils % 0.7 % (0-2.0) 01/03/20 04:14 Nucleated RBC % 0 % (0-0) 01/03/20 04:14 Sodium 141 mmol/L (136-145) 01/03/20 04:14 Potassium 3.8 mmol/L (3.5-5.1) 01/03/20 04:14 Chloride 110 mmol/L (98-107) H 01/03/20 04:14 Carbon Dioxide 25 mmol/L (21-32) 01/03/20 04:14 Anion Gap 6 MMOL/L (8-16) L 01/03/20 04:14 BUN 15.8 mg/dL (7-18) 01/03/20 04:14 Creatinine 0.9 mg/dL (0.55-1.3) 01/03/20 04:14 Est GFR (CKD-EPI)AfAm 141.01 01/03/20 04:14 Est GFR (CKD-EPI)NonAf 121.66 01/03/20 04:14 Random Glucose 82 mg/dL (74-106) 01/03/20 04:14 Calcium 9.5 mg/dL (8.5-10.1) 01/03/20 04:14 Total Bilirubin 0.4 mg/dL (0.2-1) 01/03/20 04:14 AST 19 U/L (15-37) 01/03/20 04:14 ALT 19 U/L (13-61) 01/03/20 04:14 Alkaline Phosphatase 70 U/L (45-117) 01/03/20 04:14 Total Protein 6.4 g/dl (6.4-8.2) 01/03/20 04:14 Albumin 3.8 g/dl (3.4-5.0) 01/03/20 04:14 Lipase 123 U/L (73-393) 01/03/20 04:14 Urine Color Yellow 01/03/20 06:55 Urine Appearance Clear 01/03/20 06:55 Urine pH 5.5 (5.0-8.0) 01/03/20 06:55 Ur Specific [place] 1.036 (1.010-1.035) H 01/03/20 06:55 Urine Protein Negative (NEGATIVE) 01/03/20 06:55 Urine Glucose (UA) Negative (NEGATIVE) 01/03/20 06:55 Urine Ketones Negative (NEGATIVE) 01/03/20 06:55 Urine Blood Negative (NEGATIVE) 01/03/20 06:55 Urine Nitrite Negative (NEGATIVE) 01/03/20 06:55 Urine Bilirubin Negative (NEGATIVE) 01/03/20 06:55 Urine Urobilinogen 1.0 mg/dL (0.2-1.0) 01/03/20 06:55 Ur Leukocyte Esterase Negative (NEGATIVE) 01/03/20 06:55 Pt reported improvement of pain. Pt discharged. Advised to F/U with PCP. Discharge - Discharge Information Problems reviewed: Yes Clinical Impression/Diagnosis: Abdominal pain Qualifiers: Abdominal location: right lower quadrant Qualified Code(s): R10.31 - Right lower quadrant pain Condition: Improved Disposition: HOME - Admission No - Additional Discharge Information Prescriptions: Ondansetron [Zofran *Odt*] 4 mg SL TID #6 od.tablet - Follow up/Referral - Patient Discharge Instructions Patient Printed Discharge Instructions: DI for Abdominal Pain-Adult, DI for Diarrhea and Traveler's Diarrhea -- Adult Additional Instructions: Take tylenol over the counter for pain. Take as advised on the label. Drink lots of gatorate to replace your electrolytes. Follow up with your primary care doctor within 3 days regarding your Emergency Room visit. Your care is not complete until you follow up. Bring all paperwork to your appointment that you were given today. Return to the Emergency Department for increasing pain, intractable vomiting, chest pain, shortness of breath, blood in stool, or any other new, worsening or concerning symptoms. - Post Discharge Activity Work/Back to School Note: Back to Work, Back to School
[2020-01-03 07:42] LABS: ALBUMIN 3.8 g/dl (3.4-5.0); BILIRUBIN,TOTAL 0.4 mg/dL (0.2-1); BLOOD UREA NITROGEN 15.8 mg/dL (7-18); CALCIUM 9.5 mg/dL (8.5-10.1); CREATININE 0.9 mg/dL (0.55-1.3); POTASSIUM 3.8 mmol/L (3.5-5.1); TOT PROT 6.4 g/dl (6.4-8.2)
[2020-01-03 07:57] LABS: PH,URINE 5.5 (5.0-8.0); URINE APPEARANCE CLEAR; URINE BILIRUBIN NEGATIVE (NEGATIVE); URINE COLOR YELLOW; URINE GLUCOSE (UA) NEGATIVE (NEGATIVE); URINE KETONE NEGATIVE (NEGATIVE); URINE LEUK ESTERASE NEGATIVE (NEGATIVE); URINE NITRITE NEGATIVE (NEGATIVE); URINE PROTEIN NEGATIVE (NEGATIVE)
== END 2020-01-03 08:30 | disposition home or self-care (01) ==
LOC: JER 01:59
PROC: 3E033NZ Introduction of Analgesics, Hypnotics, Sedatives into Peripheral Vein, Percutaneous Approach (ICD-10-PCS; principal; 2020-01-03)
DX: R10.31 Right lower quadrant pain (principal); G40.909 Epilepsy, unspecified, not intractable, without status epilepticus; F39 Unspecified mood [affective] disorder; F20.9 Schizophrenia, unspecified; F31.9 Bipolar disorder, unspecified; Z91.013 Allergy to seafood
CPT/HCPCS: 36415; 80053; 81003; 83690; 85025; 87086; 96374; 99284-25; J0131

== ENCOUNTER 2020-01-17 00:51 | Emergency (ER) | payer OTHER ==
[2020-01-17 01:02] VITALS: PULSE 74; TEMP 97.6; BMI 26.6
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
--- NOTE | 2020-01-17 01:29 | PDOC ---
Attending Attestation - Resident Resident Name: Romario Mayfieldson - ED Attending Attestation I have performed the following: I have examined & evaluated the patient, The case was reviewed & discussed with the resident, I agree w/resident's findings & plan - HPI HPI: 01/17/20 03:19 Pt states that he fell and he has right wrist pain as well as right rib pain. No swelling and no skin color changes. Pt appears comfortable. He states that he smokes weed Lives on [employer]. - Physicial Exam PE: 01/17/20 03:19 Agree with resident exam 01/17/20 03:21 Pt has no pain with pressure over ribs; no stepoffs. Pt smells of pot. - Medical Decision Making 01/17/20 03:03 Ribs are normal wrist: pt has a well corticated small oval calcification sesamoid like bone beneath the skin at the volar lateral aspect of the wrist. 01/17/20 03:20 Eric wrap the wrist. Pt will follow with ortho. Pt has normal exam. Sleeping comfortably 01/17/20 03:21 Pt encouraged to quit smoking pot.
[2020-01-17] MEDS ORDERED: ACETAMINOPHEN 325 MG TABLET (FP) PO ONE (01:55)
[2020-01-17] MEDS ORDERED: ACETAMINOPHEN 325 MG TABLET (FP) ONE (02:18)
[2020-01-17 03:57] VITALS: BP 105/52
== END 2020-01-17 03:50 | disposition home or self-care (01) ==
LOC: JER 00:51
PROC: 2W3CXYZ Immobilization of Right Lower Arm using Other Device (ICD-10-PCS; principal; 2020-01-17)
DX: F10.120 Alcohol abuse with intoxication, uncomplicated (principal); S69.81XA Other specified injuries of right wrist, hand and finger(s), initial encounter; M25.531 Pain in right wrist; Y04.0XXA Assault by unarmed brawl or fight, initial encounter; Y93.89 Activity, other specified; Y92.89 Other specified places as the place of occurrence of the external cause; Y99.8 Other external cause status; Y07.9 Unspecified perpetrator of maltreatment and neglect; G40.909 Epilepsy, unspecified, not intractable, without status epilepticus; F20.9 Schizophrenia, unspecified; F31.9 Bipolar disorder, unspecified; Z91.013 Allergy to seafood
CPT/HCPCS: 71101-TC-RT-FY; 73110-TC-RT-FY; 73130-TC-RT-FY; 99284-25

== ENCOUNTER 2020-01-20 01:30 | Emergency (ER) | payer OTHER ==
[2020-01-20 02:02] VITALS: BMI 25.8
--- NOTE | 2020-01-20 02:23 | PDOC ---
Attending Attestation - Resident Resident Name: Titi Melo - ED Attending Attestation I have performed the following: I have examined & evaluated the patient, The case was reviewed & discussed with the resident, I agree w/resident's findings & plan - HPI HPI: 01/20/20 05:26 see resident hpi - Physicial Exam PE: 01/20/20 05:26 see resident exam - Medical Decision Making 01/20/20 05:26 19-year-old male stating he feels weak after smoking marijuana Fingerstick blood sugar and CT scan of the brain are within normal limits Patient more easily arousable on reevaluation at 5:30 AM Plan for DC home shortly
--- NOTE | 2020-01-20 02:37 | PDOC ---
History of Present Illness - General Chief Complaint: Diarrhea Stated Complaint: NOT FEELING WELL Time Seen by Provider: 01/20/20 02:20 History Source: Patient Exam Limitations: Intoxication - History of Present Illness Initial Comments: 01/20/20 02:36 History limited by intoxication. He reports smoking marijuana at approx 1900, and feeling weak. He is unable to provide further history. Past History - Past Medical History Allergies/Adverse Reactions: Allergies Allergy/AdvReac Type Severity Reaction Status Date / Time shellfish derived Allergy Verified 01/20/20 02:02 Home Medications: Ambulatory Orders Divalproex Sodium [Depakote] 1,000 mg PO BID 14 Days #56 tablet. 07/04/19 Ondansetron [Zofran *Odt*] 4 mg SL TID #6 od.tablet 01/03/20 COPD: No Psychiatric Problems: Yes (SCHIZOPHRENIA,BIPOLAR) Seizures: Yes - Immunization History Td Vaccination: Yes TDAP Vaccination: Yes Immunization Up to Date: Yes - Psycho Social/Smoking Cessation Hx Smoking Status: No Smoking History: Current every day smoker Have you smoked in the past 12 months: Yes Number of Cigarettes Smoked Daily: 10 Information on smoking cessation initiated: No Hx Alcohol Use: Yes Drug/Substance Use Hx: Yes (Marijuana) Substance Use Type: None Review of Systems - Review of Systems Able to Perform ROS?: No (Intoxicated) *Physical Exam - Vital Signs Last Vital Signs Temp Pulse Resp BP Pulse Ox 98.1 F 76 16 112/72 97 01/20/20 01:30 01/20/20 01:30 01/20/20 01:30 01/20/20 01:30 01/20/20 01:30 - Physical Exam 01/20/20 03:13 GENERAL: Somnolent HEAD: No signs of trauma, normocephalic, atraumatic EYES: PERRLA, EOMI, sclera anicteric, conjunctiva clear ENT: Auricles normal inspection, hearing grossly normal, nares patent, oropharynx clear without exudates. Moist mucosa NECK: Normal ROM, supple, no lymphadenopathy, JVD, or masses LUNGS: No distress, speaks full sentences, clear to auscultation bilaterally HEART: Regular rate and rhythm, normal S1 and S2, no murmurs, rubs or gallops, peripheral pulses normal and equal bilaterally. ABDOMEN: Soft, nontender, normoactive bowel sounds. No guarding, no rebound. No masses EXTREMITIES : Normal inspection, Normal range of motion, no edema. No clubbing or cyanosis NEUROLOGICAL: Unable to assess SKIN: Warm, Dry, normal turgor, no rashes or lesions noted Medical Decision Making - Medical Decision Making 01/20/20 03:14 19M w/hx epilepsy p/w apparent intoxication after smoking marijuana, although hx limited by intoxication. Ddx also includes hypoglycemia, head trauma given unclear history. Plan: [facility] CT Head w/o contrast Serial reassessment Dispo: Discharge 01/20/20 03:58 CT Head - no acute process visualized On reassessment, he remains intoxicated but is more awake than previously. He denies any symptoms at this time, including pain anywhere, nausea, vomiting, diarrhea. 01/20/20 05:53 On reassessment, Mr. West is clinically sober. Plan for discharge. Discharge - Discharge Information Problems reviewed: Yes Clinical Impression/Diagnosis: Polysubstance abuse Condition: Fair Disposition: HOME - Admission No - Follow up/Referral - Patient Discharge Instructions Patient Printed Discharge Instructions: Substance Use Disorder - Post Discharge Activity
[2020-01-20 05:44] VITALS: BP 101/49; PULSE 59; TEMP 97.7
== END 2020-01-20 06:00 | disposition home or self-care (01) ==
LOC: JER 01:30
DX: F12.229 Cannabis dependence with intoxication, unspecified (principal); R53.1 Weakness; G40.909 Epilepsy, unspecified, not intractable, without status epilepticus; F20.9 Schizophrenia, unspecified; F31.9 Bipolar disorder, unspecified; Z91.013 Allergy to seafood
CPT/HCPCS: 70450-TC; 82962; 99284-25

== ENCOUNTER 2020-02-16 02:03 | Emergency (ER) | payer OTHER ==
[2020-02-16 03:30] LABS: BASO % 0.6 % (0-2.0); EOS % 3.8 % (0-4.5); HEMATOCRIT 43.1 % (35.4-49); HEMOGLOBIN 14.6 GM/dL (11.7-16.9); LYMPH % 50.8 % (8-40); MCH 29.7 pg (25.7-33.7); MCHC 33.8 g/dl (32.0-35.9); MEAN CELL VOLUME 87.8 fl (80-96); MEAN PLT VOLUME 10.7 fl (7.5-11.1); MONO % 4.3 % (3.8-10.2); NEUT % 40.5 % (42.8-82.8); PLATELET COUNT 184 K/MM3 (134-434); RBC 4.91 M/mm3 (4.00-5.60); RDW 15.2 % (11.9-15.9); WHITE BLOOD COUNT 8.1 K/mm3 (4.0-10.0)
[2020-02-16 04:29] LABS: ALBUMIN 3.8 g/dl (3.4-5.0); BILIRUBIN,TOTAL 0.2 mg/dL (0.2-1); CREATININE 0.8 mg/dL (0.55-1.3); POTASSIUM 4.7 mmol/L (3.5-5.1); TOT PROT 7.2 g/dl (6.4-8.2)
[2020-02-16 06:22] VITALS: BMI 26.4
[2020-02-16 08:35] LABS: URINE APPEARANCE CLEAR; URINE BILIRUBIN NEGATIVE (NEGATIVE); URINE COLOR YELLOW; URINE GLUCOSE (UA) NEGATIVE (NEGATIVE); URINE KETONE NEGATIVE (NEGATIVE); URINE LEUK ESTERASE NEGATIVE (NEGATIVE); URINE NITRITE NEGATIVE (NEGATIVE); URINE PROTEIN NEGATIVE (NEGATIVE); URINE UROBILINOGEN 0.2 mg/dL (0.2-1.0)
[2020-02-16 09:17] VITALS: BP 120/54; PULSE 53; TEMP 97.7
== END 2020-02-16 09:10 | disposition home or self-care (01) ==
LOC: JER 02:03
DX: R10.9 Unspecified abdominal pain (principal)
CPT/HCPCS: 36415; 80053; 81003; 85025; 87086; 99284-25